=== PATIENT | male | born 1955 | race Caucasian/White ===

== ENCOUNTER 2018-07-24 06:37 | Emergency (ER) | payer OTHER, SELFPAY ==
[2018-07-24 06:48] VITALS: BP 143/95; PULSE 69; RESP 18; TEMP 37.1; O2SAT 96
--- NOTE | 2018-07-24 06:48 | DI.RAD_ITS ---
SYMPTOMS/DIAGNOSIS: LEFT MEDIAL ELBOW PAIN S/P FALL ON ICE LAST NIGHT LEFT ELBOW: Three views were obtained. There are mild degenerative changes of the joints of the elbow. There is no evidence of an elbow joint effusion or hemarthrosis. No fracture is seen.
--- NOTE | 2018-07-24 06:50 | W.ED.GENAD ---
Discharge Plan Disposition Patient Disposition: HOME Condition: Good Discharge Details Chief Complaint: Orthopedic Clinical Impression: Epicondylitis elbow, medial Primary Care Provider: Yanna Leyva ED Provider: Collin Fung Home Meds and New Rx's Prescriptions: No Action No Known Home Meds RF: 0 Discharge Instructions Instructions: Tennis Elbow (ED) Additional Instructions: Please take Tylenol, Motrin, and ice for your pain. Please use ice every 15 minutes on and off. If your chronic tingling persists or worsened please follow-up with your family doctor or orthopedic surgeon as soon as possible. If you notice any worsening of your symptoms, or any new symptoms such as vomiting, diarrhea, fever, chills, shortness of breath, chest pain, numbness, weakness, or fainting , please return immediately to the emergency department for reevaluation. Please follow up with your primary care provider as soon as possible for reassessment and reevaluation. As always, it was a pleasure participating in your medical care today. Referrals: Yanna Leyva [Primary Care Provider] - Discharge Data Discharge Date/Time-TO BE ENTERED AT DEPARTURE: 07/24/18 07:23 Medical Decision Making This is a pleasant 62-year-old male with no significant past medical history who presents today after a fall. Yesterday he fell and hit the medial aspect of his left elbow. He does have some associated numbness and tingling in his third fourth and fifth digit. He has chronic tingling in his fifth digit. He has normal strength normal movement otherwise. Tenderness is located over the medial epicondyles. I do feel that his signs and symptoms are consistent with a not mild nerve apraxia secondary to his trauma. We will get an x-ray for evaluation of any acute fracture. We will give Tylenol and Motrin here and recommend continued ice at home. X-ray results demonstrate no evidence of significant fracture. Feel the patient's symptoms are most likely secondary to medial epicondylitis secondary to the trauma. We will recommend continued Tylenol Motrin and ice. Since he has no evidence of two-point discrimination, no actual numbness, and just subjective tingling I feel he is safe for discharge home. I discussed with him the importance of close follow-up with his orthopedic surgeon or his family doctor if the tingling persists. We discussed red flags which to return. I have extensively reviewed the treatment plan and discharge instructions with the patient. I have addressed all patient concerns at this time. The patient was made aware of what symptoms to monitor for that would warrant a return to the emergency department. Discussed the plan with the patient, they demonstrate verbal understanding and agreement with our assessment and plan at this time. Impression: 1. Mild posterior soft tissue swelling without evidence for acute fracture or dislocation. 2. Degenerative changes as described. Dictated and Authenticated by: Chau Troncoso MD. HPI General Date/Time Provider Initiated Documentation: 07/24/18 06:42. HPI Narrative: This is a 62-year-old male with no significant past medical history presents today for evaluation of left elbow pain. Patient states that yesterday he slipped and landed on the medial aspect of his left elbow. Since then he has had mild pain there as well as some associated numbness and tingling in his third fourth and fifth digit. He has a history of chronic numbness and tingling in his fifth digit and had an ulnar nerve release in the past. Patient denies any pain in the proximal or distal arm, no pain in the wrist. He denies any other associated pain. That time he slipped he did not hit his head and had no loss of consciousness. He takes no blood thinners. He has no other complaints at this time. Symptoms are made worse with movement. He has been using some ice, but denies using any Tylenol or Motrin. Patient denies any other complaints at this time he denies any pertinent family history, IV or illicit drug use. Related Data Home Medications Medication Instructions Recorded Confirmed Unknown [No Known Home Meds] 07/24/18 07/24/18 Allergies Allergy/AdvReac Type Severity Reaction Status Date / Time No Known Allergies Allergy Unverified 07/24/18 06:56 Review of Systems Review of Systems All systems reviewed & are unremarkable except as noted in HPI and below [facility] Surgical History Cholecystectomy Colonoscopy - IV Sedation (01/06/17) Social History Smoking/Tobacco Use Status: Current every day Exam Narrative Exam Narrative: 1.Const: Well-nourished, Well-developed, appearing stated age 2.Eyes: PERRL, no conjunctival injection, and symmetrical lids. 3.ENT: Atraumatic external nose and ears. Moist MM. Neck: Symmetric, trachea midline, No thyromegaly. 4.CVS: +S1/S2, No murmurs or gallops. Peripheral pulses 2+ and equal in all extremities. Brisk capillary refill in all extremities. 5.RESP: Unlabored respiratory effort. Clear to auscultation bilaterally. No wheezes rales or rhonchi 6.GI: Soft, Nontender/Nondistended, No hepatosplenomegaly. No guarding or rebound. 7.MSK: Normocephalic/Atraumatic, Extremities w/o deformity or ttp No cyanosis or clubbing, Normal movement of all extremities symmetrically palpable radial and ulnar pulses. Capillary refill <2 seconds to all digits. Intact sensation to light touch of the radial, median and ulnar nerves demonstrated by testing in the dorsal web space of the thumb, the distal palmar aspect of the index finger, and the lateral surface of the fifth finger. 2 point discrimination intact to 5mm (up to 6mm can be normal in digits 3-5) of discrimination in the affected digit. Intact motor function of the radial, median and ulnar nerves demonstrated by strength of extension of the isolated distal joint of the index finger, hand survey research teacher, and spreading of the 2nd through 5th digits. Intact recurrent median nerve as demonstrated by ability to move thumb fully through opposition, abduction and flexion. No snuffbox tenderness. Patient demonstrates mild tenderness on the medial aspect of his elbow over the medial epicondyles. Normal flexion and extension of the elbow. No pain with pronation or supination. Normal hand survey research teacher strength and hand movement. No other abnormalities on exam. No signs of significant swelling. 8.Skin: Warm, Dry. No rashes or lesions. 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 Sensation grossly intact, no focal neurologic deficits. 10.Psych: (AAO) x3. Appropriate mood and affect
--- NOTE | 2018-07-24 06:55 | ED.GENADUL_ITS ---
Discharge Plan Disposition Patient Disposition: HOME Condition: Good Discharge Details Chief Complaint: Orthopedic Clinical Impression: Epicondylitis elbow, medial Primary Care Provider: Yanna Leyva ED Provider: Collin Fung Home Meds and New Rx's Prescriptions: No Action No Known Home Meds RF: 0 Discharge Instructions Instructions: Tennis Elbow (ED) Additional Instructions: Please take Tylenol, Motrin, and ice for your pain. Please use ice every 15 minutes on and off. If your chronic tingling persists or worsened please follow-up with your family doctor or orthopedic surgeon as soon as possible. If you notice any worsening of your symptoms, or any new symptoms such as vomiting, diarrhea, fever, chills, shortness of breath, chest pain, numbness, weakness, or fainting , please return immediately to the emergency department for reevaluation. Please follow up with your primary care provider as soon as possible for reassessment and reevaluation. As always, it was a pleasure participating in your medical care today. Referrals: Yanna Leyva [Primary Care Provider] - Discharge Data Discharge Date/Time-TO BE ENTERED AT DEPARTURE: 07/24/18 07:23 Medical Decision Making This is a pleasant 62-year-old male with no significant past medical history who presents today after a fall. Yesterday he fell and hit the medial aspect of his left elbow. He does have some associated numbness and tingling in his third fourth and fifth digit. He has chronic tingling in his fifth digit. He has normal strength normal movement otherwise. Tenderness is located over the medial epicondyles. I do feel that his signs and symptoms are consistent with a not mild nerve apraxia secondary to his trauma. We will get an x-ray for evaluation of any acute fracture. We will give Tylenol and Motrin here and recommend continued ice at home. X-ray results demonstrate no evidence of significant fracture. Feel the patient's symptoms are most likely secondary to medial epicondylitis secondary to the trauma. We will recommend continued Tylenol Motrin and ice. Since he has no evidence of two-point discrimination, no actual numbness, and just subjective tingling I feel he is safe for discharge home. I discussed with him the importance of close follow-up with his orthopedic surgeon or his family doctor if the tingling persists. We discussed red flags which to return. I have extensively reviewed the treatment plan and discharge instructions with the patient. I have addressed all patient concerns at this time. The patient was made aware of what symptoms to monitor for that would warrant a return to the emergency department. Discussed the plan with the patient, they demonstrate verbal understanding and agreement with our assessment and plan at this time. Impression: 1. Mild posterior soft tissue swelling without evidence for acute fracture or dislocation. 2. Degenerative changes as described. Dictated and Authenticated by: Chau Troncoso MD. HPI General Date/Time Provider Initiated Documentation: 07/24/18 06:42 . HPI Narrative: This is a 62-year-old male with no significant past medical history presents today for evaluation of left elbow pain. Patient states that yesterday he slipped and landed on the medial aspect of his left elbow. Since then he has had mild pain there as well as some associated numbness and tingling in his third fourth and fifth digit. He has a history of chronic numbness and tingling in his fifth digit and had an ulnar nerve release in the past. Patient denies any pain in the proximal or distal arm, no pain in the wrist. He denies any other associated pain. That time he slipped he did not hit his head and had no loss of consciousness. He takes no blood thinners. He has no other complaints at this time. Symptoms are made worse with movement. He has been using some ice, but denies using any Tylenol or Motrin. Patient denies any other complaints at this time he denies any pertinent family history, IV or illicit drug use. Related Data Home Medications Medication Instructions Recorded Confirmed Unknown [No Known Home Meds] 07/24/18 07/24/18 Allergies Allergy/AdvReac Type Severity Reaction Status Date / Time No Known Allergies Allergy Unverified 07/24/18 06:56 Review of Systems Review of Systems All systems reviewed & are unremarkable except as noted in HPI and below [facility] Surgical History Cholecystectomy Colonoscopy - IV Sedation (01/06/17) Social History Smoking/Tobacco Use Status: Current every day Exam Narrative Exam Narrative: 1.Const: Well-nourished, Well-developed, appearing stated age 2.Eyes: PERRL, no conjunctival injection, and symmetrical lids. 3.ENT: Atraumatic external nose and ears. Moist MM. Neck: Symmetric, trachea midline, No thyromegaly. 4.CVS: +S1/S2, No murmurs or gallops. Peripheral pulses 2+ and equal in all extremities. Brisk capillary refill in all extremities. 5.RESP: Unlabored respiratory effort. Clear to auscultation bilaterally. No wheezes rales or rhonchi 6.GI: Soft, Nontender/Nondistended, No hepatosplenomegaly. No guarding or rebound. 7.MSK: Normocephalic/Atraumatic, Extremities w/o deformity or ttp No cyanosis or clubbing, Normal movement of all extremities symmetrically palpable radial and ulnar pulses. Capillary refill <2 seconds to all digits. Intact sensation to light touch of the radial, median and ulnar nerves demonstrated by testing in the dorsal web space of the thumb, the distal palmar aspect of the index finger, and the lateral surface of the fifth finger. 2 point discrimination intact to 5mm (up to 6mm can be normal in digits 3-5) of discrimination in the affected digit. Intact motor function of the radial, median and ulnar nerves demonstrated by strength of extension of the isolated distal joint of the index finger, hand edger runner, and spreading of the 2nd through 5th digits. Intact recurrent median nerve as demonstrated by ability to move thumb fully through opposition, abduction and flexion. No snuffbox tenderness. Patient demonstrates mild tenderness on the medial aspect of his elbow over the medial epicondyles. Normal flexion and extension of the elbow. No pain with pronation or supination. Normal hand edger runner strength and hand movement. No other abnormalities on exam. No signs of significant swelling. 8.Skin: Warm, Dry. No rashes or lesions. 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 Sensation grossly intact, no focal neurologic deficits. 10.Psych: (AAO) x3. Appropriate mood and affect
[2018-07-24] MEDS: Acetaminophen 500 MG TAB 1000 MG PO (07:03)
[2018-07-24] MEDS: Ibuprofen 800 MG TAB PO (07:03)
--- NOTE | 2018-07-24 08:58 | DI.VRAD_ITS ---
EXAM: XR Left Elbow Complete, 3 or more Views EXAM DATE/TIME: 07/24/2018 6:50 AM CLINICAL HISTORY: 62 years old, male; Injury or trauma; Fall; Initial encounter; Blunt trauma (contusions or hematomas; Elbow; Left; Injury date: 07/23/2018; Injury details: Fall on ice TECHNIQUE: XR Left elbow, 3 or more views. COMPARISON: No relevant prior studies available. FINDINGS: Bones/joints: No acute fracture or dislocation is identified. There is mild osteophyte formation along the radial head, coronoid, medial epicondyle and posterior olecranon. Soft tissues: There is mild posterior soft tissue swelling. The fat pads are not significantly displaced. IMPRESSION: 1. Mild posterior soft tissue swelling without evidence for acute fracture or dislocation. 2. Degenerative changes as described. Dictated and Authenticated by: Chau Troncoso MD. Ordering:BRADY Polanco MD
== END 2018-07-24 07:23 | disposition home or self-care (01) ==
PROVIDERS: Emergency Provider Student in an Organized Health Care Education/Training Program; PCP Nurse Practitioner Family
DX: S59.902A Unspecified injury of left elbow, initial encounter (principal); M77.02 Medial epicondylitis, left elbow; W19.XXXA Unspecified fall, initial encounter
CPT/HCPCS: 99283; 73080

== ENCOUNTER 2019-03-13 11:32 | Emergency (ER) | payer OTHER, SELFPAY ==
[2019-03-13 11:36] VITALS: BP 146/77; PULSE 92; RESP 18; TEMP 36.5; O2SAT 95
--- NOTE | 2019-03-13 11:42 | ED.GENADUL_ITS ---
Discharge Plan Disposition Patient Disposition: HOME Condition: Stable Discharge Details Chief Complaint: Laceration Clinical Impression: Laceration of hand, left Primary Care Provider: Yanna Leyva ED Provider: Chau Urbano Home Meds and New Rx's Prescriptions: No Action No Known Home Meds RF: 0 Discharge Instructions Instructions: Skin Adhesive Care (ED) Medical Decision Making pt was using a knife when it slipped causing a 2cm superficial laceration to the mid palmar hand. Denies falling or other injuries. HE has very superficial laceration that is not bleeding, sensation intact with full rom so doubt tendon or nerve injury and wound seems too superficial to cause injury to these structure. Will place dermabond on it and return precautions given for infection Differential Diagnosis lac, abrasion HPI General Mode of arrival: ambulatory . Date/Time Provider Initiated Documentation: 03/13/19 11:38 . Limitations to Documentation: no limitations . Information obtained by: patient . History of Present Illness 63 year old M presents to the emergency department with the chief complaint of left hand lac, described as mild, and is localized to the left and upper extremity. No relieving factors improve symptom(s), No exacerbating factors reported . Patient did receive the following treatments prior to arrival, none Related Data Home Medications Medication Instructions Recorded Confirmed Unknown [No Known Home Meds] 07/24/18 03/13/19 Allergies Allergy/AdvReac Type Severity Reaction Status Date / Time No Known Allergies Allergy Unverified 03/13/19 11:41 General Stated Complaint: Laceration ZACARIAS: 4 Review of Systems Review of Systems All systems reviewed & are unremarkable except as noted in HPI and below Constitutional Denies chills, Denies fever(s) and Denies weakness Cardiovascular Denies chest pain and Denies dyspnea Respiratory Denies cough and Denies dyspnea Gastrointestinal Denies abdominal pain, Denies nausea and Denies vomiting Neurologic Denies weakness [facility] Surgical History (Updated 05/16/18 @ 14:36 by [employer] [place]) Cholecystectomy Colonoscopy - IV Sedation (01/06/17) Social History Smoking/Tobacco Use Status: Current every day Alcohol Intake: current Alcohol Intake frequency: holidays/special occasions only Drug use: Never Do you feel safe at home: Yes Do you feel safe in your relationship?: Yes Exam Const General: no acute distress Orientation: alert HENMT Head: normal to inspection Ears: external ears normal General nose exam: external nose normal Mouth: moist mucous membranes Eyes General: appearance normal, both eyes and all related structures Neck Neck: normal visual inspection Resp Effort & Inspection: normal respiratory effort and able to speak in complete sentences Cardio Rate: regular rate Skin General skin exam: no rashes or lesions noted Neuro General: alert and oriented x3 Extrem General: full ROM and normal capillary refill Psych Mental Status: mental status grossly normal Course Vital Signs Temperature 36.5 C 03/13/19 11:36 Pulse 92 H 03/13/19 11:36 Respiratory Rate 18 03/13/19 11:36 Blood Pressure 146/77 H 03/13/19 11:36 Pulse Oximetry 95 03/13/19 11:36 Temperature 36.5 C 03/13/19 11:36 Temperature Source Skin 03/13/19 11:36 Pulse 92 H 03/13/19 11:36 Respiratory Rate 18 03/13/19 11:36 Respiratory Effort Non-Labored 03/13/19 11:38 Blood Pressure 146/77 H 03/13/19 11:36 Blood Pressure Position Sitting 03/13/19 11:36 Pulse Oximetry 95 03/13/19 11:36 Oxygen Delivery Method Room Air 03/13/19 11:36 Oxygen Flow Rate 0 03/13/19 11:36 Procedures Laceration Laceration 1: Site: hand Side (If applicable): left Size (cm): 2 Description: linear Depth: simple, single layer Pre-repair: irrigated extensively Skin layer closed with: other (skin adhesive)
== END 2019-03-13 11:51 | disposition home or self-care (01) ==
LOC: ER 11:45
PROVIDERS: Emergency Provider Emergency Medicine; PCP Nurse Practitioner Family
DX: S61.412A Laceration without foreign body of left hand, initial encounter (principal); W26.0XXA Contact with knife, initial encounter
CPT/HCPCS: 12001

== ENCOUNTER 2020-05-13 15:42 | Outpatient (CLI) | payer OTHER, SELFPAY ==
--- NOTE | 2020-05-13 09:15 | DI.RAD_ITS ---
EXAM: XR SHOULDER LT COMPLETE 2+V CLINICAL HISTORY: left shoulder pain. TECHNIQUE: 2D digital imaging was performed. COMPARISON: No exams were available for comparison FINDINGS: BONES: No acute fracture is present. No bony destructive lesion is seen. JOINTS: Moderate degenerative changes are seen at the acromioclavicular joint. The glenohumeral join t appears well maintained. SOFT TISSUE: Normal. IMPRESSION: Degenerative changes of the left AC joint. DATA REPOSITORY: RADIATION DOSE DELIVERED:
== END 2020-05-13 16:02 ==
PROVIDERS: PCP Nurse Practitioner Family; Visit Provider Physician Assistant
DX: M19.012 Primary osteoarthritis, left shoulder (principal)
CPT/HCPCS: 73030

== ENCOUNTER 2020-10-19 02:21 | Outpatient (CLI) | payer OTHER, SELFPAY ==
--- NOTE | 2020-10-19 07:15 | DI.MRI_ITS ---
EXAM: MR CERVICAL SPINE WO CLINICAL HISTORY: persistent pain,CERVICAL PARASPINAL MUSCLE SPASM,RADICULOPATHY TECHNIQUE: Multiplanar multisequence MRI of the cervical spine was performed without intravenous con trast. COMPARISON: There are no plain films of cervical spine available at the time of this MRI interpretat ion. FINDINGS: CERVICOMEDULLARY JUNCTION: Intact with no evidence of cerebellar tonsillar ectopia. No obvious abnor mality of the odontoid process. No evidence of Chiari 1 malformation. CERVICAL SPINAL CORD: There is no abnormal signal in the cervical spinal cord and no evidence of foca l cord atrophy nor focal cord swelling. OSSEOUS:There are no cervical fractures evident. No significant osseous lesions in the cervical vert ebrae. There is an intraosseous hemangioma in right-side C6 vertebral body. INDIVIDUAL LEVELS: C2-3: Normal disc height and signal. No significant disc herniation. Central canal dimensions are w ithin normal limits. There is significant facet arthropathy of the left facet joint. No right-sided facet arthropathy. Some narrowing of the exiting left neural foramen is noted. C3-4: Normal disc height. Preserved disc signal. However, there is a central posterior subligamento us disc protrusion which extends posteriorly approximately 3 millimeters and contacts-slightly indent s the anterior aspect of the spinal cord at this level. Central canal dimensions are lower normal. There is no abnormal signal within the cord at this level. Some degenerative changes evident in the right facet joint at this level. Mild foraminal stenosis. Left facet joint unremarkable. No forami nal stenosis on the left. C4-5: Normal disc height and signal. No disc herniation at this level. Central canal dimensions are within normal limits. No significant facet arthropathy nor significant foraminal narrowing at this level. C5-6: Moderate decreased disc height. Anterior osseous lipping. Bilateral Luschka joint osteophytes , larger on the right side. No prominent disc protrusion. Central canal dimensions lower normal. F acet of is a mild facet arthropathy left side. Right facet unremarkable. There is some narrowing of the exiting right neural foramen at this level . Also some narrowing of the exiting left neural for amen. C6-7: Chronic disc space narrowing. Annular bulging. There is a lateral less disc protrusion which causes significant narrowing of the exiting left neural foramen. Minimal degenerative change in the left facet joint. Moderate degenerative change in the right facet joint but no significant foraminal stenosis on the right side. C7-T1: No disc herniation nor central canal stenosis. No facet arthropathy.No foraminal stenosis. Incidentally noted is a disc protrusion at T2-T3 level, as seen on the sagittal images. This level i s not included on the axial images field of view. IMPRESSION: 1. Multilevel degenerative disc disease. There is a moderate size disc protrusion on the left side a t C6-7 level. There is significant stenosis of the exiting left neural foramen at this level. Also central disc protrusion at C 3-4 level which slightly indents the cervical cord. There is no abnorma l signal in the cord. No cord atrophy nor focal cord swelling. 2. C5-6 level Luschka joint osteophytes, larger on the right side. 3. Asymmetric multilevel facet joint arthropathy, as detailed above. DATA REPOSITORY:
== END 2020-10-19 02:41 ==
PROVIDERS: PCP Nurse Practitioner Family; Visit Provider Student in an Organized Health Care Education/Training Program
DX: M47.812 Spondylosis without myelopathy or radiculopathy, cervical region (principal); M25.78 Osteophyte, vertebrae; M50.223 Other cervical disc displacement at C6-C7 level; M50.21 Other cervical disc displacement, high cervical region; M48.02 Spinal stenosis, cervical region
CPT/HCPCS: 72141

== ENCOUNTER 2021-06-03 02:03 | Outpatient (CLI) | payer OTHER, SELFPAY ==
--- NOTE | 2021-06-03 | DI.US_ITS ---
Exam(s) US PAIN CLINIC NEEDLE GUIDANCE EXAM: MYALGIA, M79.1 COMPARISON: No exams were available for comparison TECHNIQUE: Ultrasound performed using standard protocol. FINDINGS: Ultrasound guidance was provided during trigger point injection performed by Dr. Conti. Radiologist n ot present. IMPRESSION: DATA REPOSITORY:
[2021-06-03 12:41] VITALS: BP 156/92; PULSE 82; RESP 18; O2SAT 96
--- NOTE | 2021-06-03 13:24 | PDOC.PAIN_ITS ---
Pain Clinic Procedure Note Procedure Note Procedure Note: ULTRASOUND GUIDED LEFT RHOMBOID MUSCLE TRIGGER POINT INJECTIONS Pre-Procedural Evaluation: Vishnu Leary has been referred to the [facility] Management [facility] for an Ultrasound Guided [right/left Rhomboid muscle trigger point injection for a chief complaint of mid-back pain. Pre-procedure Pain Score: 6/10 DX: Muscle pain Patient was interviewed and the medical record reviewed. There were no medical, pharmacologic, radiographic, or other structural contraindications to preforming an ultrasound guided injection. Risks and expected side effects as well as potential benefits of the procedure were reviewed. The patient consent form was signed and witnessed. Standard time-out procedure was performed. The use of direct ultrasound visualization of the needle (rather than a non- guided injection) was required to increase patient safety by excluding inadvertent intramuscular, intratendinous, or intraneural needle placement and minimizing bleeding by avoiding osteochondral or vascular injury from the needle. Additionally, the increased accuracy of placement may increase clinical effectiveness and will allow higher diagnostic specificity when evaluating effectiveness of this injection. Procedure Description: The patient was placed in the prone position and automated blood pressure cuff and pulse oximeter applied for monitoring during the procedure and recorded in the medical record. Pre-injection ultrasound scanning of the area of interest was performed using the linear transducer, identifying relevant anatomy, landmarks, and neurovascular structures allowing for optimal needle path. The site was then prepared in the usual sterile fashion, using thorough Chlorhexadine preparation of the skin and sterile draping. The same ultrasound transducer was then passed into the sterile field using sterile probe cover and sterile ultrasound gel. The injection target was again visualized. Skin and subcutaneous tissues were anesthetized with 2 mL of 1% Lidocaine. A 21 G 3.5 Pujunk Ultrasound needle was placed under live ultrasound guidance, using an in-plane, to the target area. After visualization of the needle tip at the target area, a mixture of 3 mL 2% Lidocaine and 1 mL Dexamethasone, totaling 4 mL of injectate was delivered after negative aspiration for blood. Ultrasound images were captured and stored for documentation purposes. Post-procedure Pain Score: 0/10 Vital signs were stable throughout the procedure and were as recorded in the docflowsheet by the nursing staff. Follow up plans and appointments were discussed with the patient.Post procedure instruction was given as documented in nursing documentation and having met discharge criteria, they were discharged from the [facility] Management [facility]. COMMENTS: He tolerated the procedure well and is currently in physical therapy. Tank Conti DO, MPH Pain Management
[2021-06-03 13:34] VITALS: PULSE 78; O2SAT 96
[2021-06-03] MEDS: Dexamethasone Sod. Phos./Pres-Free 10 MG/ML VIAL IJ (13:36)
[2021-06-03] MEDS: Lidocaine 2% Pres-Free 5 ML VIAL IJ (13:37)
== END 2021-06-03 02:23 ==
PROVIDERS: PCP Nurse Practitioner Family; Visit Provider Preventive Medicine Occupational Medicine
DX: M79.18 Myalgia, other site (principal)
CPT/HCPCS: 20552; 76942

== ENCOUNTER 2021-08-31 15:45 | Outpatient (REF) | payer OTHER, SELFPAY ==
[2021-08-31 16:29] LABS: Hemoglobin A1C 5.4 % (<5.7)
[2021-08-31 16:58] LABS: Anion Gap 10.6 mmol/L (3-11); BUN 28 mg/dL (7-18); CO2 25.4 mmol/L (21.0-32.0); CREATININE 1.1 mg/dL (0.70-1.30); Calcium 9.1 mg/dL (8.5-10.1); Calculated LDL 164 mg/dL (<100); Chloride 104 mmol/L (98-107); Cholesterol 248 mg/dL (<200); Glucose 104 mg/dL (74-106); HDL Cholesterol 62 mg/dL (40-60); Sodium 140 mmol/L (136-145); TSH (W/Ref FT4) 0.74 uIU/mL (0.36-3.74); Triglyceride 112 mg/dL (<150)
[2021-09-01 11:34] LABS: Hepatitis C Ab w Rflx HCV PCR Negative (Negative)
== END 2021-08-31 15:46 | disposition home or self-care (01) ==
LOC: LBN 15:45
PROVIDERS: PCP Nurse Practitioner Family; Visit Provider Family Medicine
DX: Z00.00 Encounter for general adult medical examination without abnormal findings (principal); I10 Essential (primary) hypertension; Z11.59 Encounter for screening for other viral diseases
CPT/HCPCS: 80048; 80061; 86803; 83036; 84443

== ENCOUNTER 2021-10-04 04:04 | Outpatient (CLI) | payer OTHER, SELFPAY ==
[2021-10-04 13:41] LABS: Source Nasal/Nares
[2021-10-04 21:54] LABS: COVID-19 PCR Negative (Negative)
== END 2021-10-04 04:05 | disposition home or self-care (01) ==
LOC: LBO 04:04
PROVIDERS: PCP Nurse Practitioner Family; Visit Provider Preventive Medicine Occupational Medicine
DX: Z20.822 Contact with and (suspected) exposure to COVID-19 (principal); Z01.818 Encounter for other preprocedural examination
CPT/HCPCS: 87635

== ENCOUNTER 2021-10-07 10:23 | Outpatient (CLI) | payer OTHER, SELFPAY ==
[2021-10-07 10:34] VITALS: BP 151/87; PULSE 107; RESP 20; TEMP 36.5; O2SAT 97
[2021-10-07] MEDS: Dexamethasone Sod. Phos./Pres-Free 10 MG/ML VIAL IJ (11:13)
[2021-10-07] MEDS: Omnipaque 240 MG/ML 50 ML BTL IJ (11:13)
[2021-10-07 11:15] VITALS: BP 147/81; PULSE 97; RESP 20; O2SAT 98
--- NOTE | 2021-10-07 11:19 | DI.RAD_ITS ---
Exam(s) XR PAIN CLINIC CERVICAL SP 2V EXAM: XR PAIN CLINIC CERVICAL SP 2V CLINICAL HISTORY: Dx:Cervical Radiculopathy TECHNIQUE: 2D and realtime digital imaging was performed. COMPARISON: No exams were available for comparison FINDINGS: C-arm fluoroscopy was utilized by Dr. Conti during apparent epidural injection. Hard copy shows needl e placement at what appears to be the C7-T1 level. IMPRESSION: RADIATION DOSE DELIVERED: kit Woods=6.59 mGy Total DLP
--- NOTE | 2021-10-08 06:21 | PDOC.PAIN ---
Pain Clinic Procedure Note Procedure Note Procedure Note: Cervical Epidural Steroid Injection Vishnu Leary has been referred to the [facility] for cervical epidural steroid injection. COMMENTS: He has done well with this procedure in the past. His pre-procedure pain VAS is 6/10. Dx: Cervical radiculopathy Sapphire was interviewed and the medical record reviewed. There were no medical, pharmacologic, radiographic or other structural contraindications to attempting fluoroscopically guided epidural steroid injection. Risks and expected side effects as well as potential benefit of the procedure were reviewed with Sapphire , and Sapphire voiced concerns addressed. The printed consent form was signed and witnessed. Standard time-out procedure was performed. The patient was placed in the prone position on the fluoroscopy table and automated blood pressure cuff and pulse oximeter applied. The skin entry point for entering the epidural space by a midline C7-T1 interlaminar approach was identified under fluoroscopy and marked. Following thorough Chlorhexadine preparation of the skin and draping and 1% lidocaine infiltration of the skin entry point and subcutaneous tissues, an 18 gauge Tuohy needle was placed under fluoroscopic guidance and with loss of resistance technique into the C7-T1 epidural space. Upon needle placement and loss of resistance there were no paresthesiae or return of blood or CSF through the needle. 1 cc of Omnipaque 240 was injected with clear epidural spread in the A/P, lateral and oblique views. 15 mg of preservative free Dexomethasone was injected with no unusual discomfort expressed by Sapphire. This was flushed with 1 cc of normal saline. Sapphire 's vital signs were stable throughout the procedure and were as recorded in the docflowsheet by the nursing staff. Follow up plans and appointments were discussed with the Sapphire. Post procedure instruction was given as documented in nursing documentation and having met discharge criteria, Sapphire was discharged from the Pain Management Center. COMMENTS: If this procedure continues to be effective, he can have this procedure up to 3 times per 12 months. Post-procedure pain VAS: 1/10. Tank Conti DO, MPH [facility]-Pain Management [facility] CC: Yanna Leyva
== END 2021-10-07 10:24 | disposition home or self-care (01) ==
LOC: PC 10:23
PROVIDERS: PCP Nurse Practitioner Family; Visit Provider Preventive Medicine Occupational Medicine
DX: M54.12 Radiculopathy, cervical region (principal)
CPT/HCPCS: 62323; 72040; Q9967

== ENCOUNTER → 2022-05-06 01:01 | Outpatient (CLI) | payer OTHER, SELFPAY ==
--- OUTSIDE RECORDS SUMMARY | 2022-05-06 01:06 | XMS_ITS | Encounter Summary ---
:1955 Author Organization [facility] [place] [address] Care Team Providers Name Role Phone Yanna Leyva APRN Primary Care Provider Reason for Visit Reason Comments Establish Care Left cubital tunnel syndrome DOI: 03/09/2020 Consultation (Routine) - Closed Specialty Diagnoses / Procedures Referred By Contact Refer red To Contact Orthopaedics Diagnoses Cubital tunnel syndrome on left LEFT CUBITAL TUNNEL SYNDROME Gilberto Sullivan MD Warhold, Lance G, MD [address] [place], [place] ORTHOPAEDIC SURGERY [id number] [place] [phone] Fax: Referral ID Status Reason Start Date Expiration Date Visits V isits Requested Authorized [id number] Closed Consult, Test 10/09/2020 10/09/2021 [facility] PCP Updated and/or Approved Encounter Details Date Type Department Care Team Description 11/18/2020 [place] [facility] [place], Chronic left shoulder [facility] [place] [address] [place] [address] ORTHOPAEDIC SURGERY [place], [place] [address] Social History Tobacco Use Types Packs/Day Years Used Date Never Smoker Smokeless Tobacco: Current User Chew Comments: NOT YET Alcohol Use Standard Drinks/Week Comments Yes 0 (1 standard drink = 0.6 oz pure alcoho l) occasional Alcohol Habits Answer Date Recorded How often do you have a drink containing alcohol? Not asked How many drinks containing alcohol do you have on a typical Not asked day when you are drinking? How often do you have six or more drinks on one occasion? No t asked Comment: occasional 08/18/2014 Sex Assigned at Date Recorded Not on file documented as of this encounter Last Filed Vital Signs Vital Sign Reading Time Taken Comments Blood Pressure 169/100 11/18/2020 2:37 PM EDT Pulse 92 11/18/2020 2:37 PM EDT Temperature - - Respiratory Rate - - Oxygen Saturation - - Inhaled Oxygen Concentration - - Weight 106.6 kg (235 lb) 11/18/2020 2:37 PM EDT reporte d Height 180.3 cm (5' 11) 11/18/2020 2:37 PM EDT reporte d Body Mass Index 32.78 11/18/2020 2:37 PM EDT documented in this encounter Progress Notes Ernestina Dye MD - 11/18/2020 3:00 PM EDT I examined Vishnu Reveles Sapphire and I agree with Dr. Carr's note. ERNESTINA DYE MD Chau Carr MD - 11/18/2020 3:00 PM EDT Orthopaedic Office Note Attending: Dr. Dye Vishnu Leary is a 65 y.o. male who presents to see us in consultation today for left shoulder pain and evaluation of residual ulnar nerve symptoms Gilberto Sullivan MD [address] [place] [address] History of Present Illness: Vishnu Leary is a right hand dominant 65 y.o. male who is now approximately 6 status post a left in situ ulnar nerve decompression who presents with several months of left shoulder pain and radicular symptoms throughout his left lower extremity. The patient is been extensively worked up for his left shoulder pain including cervical spine MRI which was negative for any significant neuroforaminal stenosis and EMG studies which did not demonstrate any significant median or ulnar neuropathy. The patient has residual numbness in the distal aspect of his left small finger which has been unchanged since his surgery 6 years ago. He notes no significant increase in his pain arou nd his cubital tunnel or in his ulnar nerve distribution since surgery and he is overall pleased with his surgical result. He has been undergoing physical therapy for his left shoulder. Past Medical History: Patient Active Problem List Diagnosis Code ??? Ulnar neuropathy at elbow of left upper extremity G56.22 ??? Medial epicondylitis of elbow M77.00 ??? Pain in left shoulder M25.512 ??? Pain of left side of body R52 Past Surgical History: Past Surgical History: Procedure Laterality Date ??? PRO REVISE ULNAR NERVE AT ELBOW Left 10/10/2014 NEUROPLASTY &/OR TRANSPOSITION, ULNAR NERVE AT ELBOW performed by Ernestina Dye MD at [facility] No Known Allergies Social History: Social History Socioeconomic History ??? Marital status: Spouse name: Not on file ??? Number of children: Not on file ??? Years of education: Not on file ??? Highest education level: Not on file Occupational History ??? Not on file Tobacco Use ??? Smoking status: Never Smoker ??? Smokeless tobacco: Current User Types: Chew ??? Tobacco comment: NOT YET Substance and Sexual Activity ??? Alcohol use: Yes Comment: occasional ??? Drug use: No ??? Sexual activity: Not on file Comment: deferred Other Topics Concern ??? Not on file Social History Narrative ??? Not on file Social Determinants of Health Financial Resource Strain: ??? Difficulty of Paying Living Expenses: Food Insecurity: ??? Worried About Running Out of Food in the Last Year: ??? Ran Out of Food in the Last Year: Transportation Needs: ??? Lack of Transportation (Medical): ??? Lack of Transportation (Non-Medical): Physical Activity: ??? Days of Exercise per Week: ??? Minutes of Exercise per Session: Stress: ??? Feeling of Stress : Social Connections: ??? Frequency of Communication with Friends and Family: ??? Frequency of Social Gatherings with Friends and Family: ??? Attends Rastafari Services: ??? Active Member of Clubs or Organizations: ??? Attends Club or Organization Meetings: ??? Marital Status: Intimate Partner Violence: ??? Fear of Current or Ex-Partner: ??? Emotionally Abused: ??? Physically Abused: ??? Sexually Abused: Review of Systems: As above, otherwise negative Objective: GENERAL: Well appearing, NAD, awake, alert, appropriately answers questions HEENT- Normocephalic, atraumatic CV- RRR checked peripherally PULM- No increased work of breathing Skin- Intact Psych- Nl mood and affect Left upper extremity: Subtle left shoulder ptosis. Reproducible pain to palpation of the coracoid process, reproducible pain to palpation at the medial border the scapula at the inferior border the scapula. Subtle scapular protraction. Active forward elevation to proximal 160 degrees, active external r otation 40 degrees, active internal rotation to T12. 5/5 strength with forward flexion, external rotation, internal rotation. No pain to palpation at the AC joint, speeds and Yergason's equivocal. Negative Wartenberg's sign, negative Froment's, 5 out of 5 strength with hand intrinsics. Neurovascularlyintact distally. Imaging: No new MSK imaging at today's visit. Assessment/Plan: 65 y.o. male who presents with chronic left shoulder pain. This has been extensively worked up with a cervical MRI which did not demonstrate any significant pathology and EMG studies of the left upper extremity which demonstrated no significant median or ulnar nerve peripheral compression. 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 We discussed that the treatment for this would be scapular stabilization physical therapy. Patient also seems to complain of left lower extremity radicular symptoms in the L4 distribution. We discussed that a lumbar spine MRI would be reasonable to further evaluate this. The patient will follow up with Dr. Sullivan in [facility]. At this juncture, the patient does not need anyintervention on his left ulnar nerve. Follow up: PRN ?? This plan was discussed with the patient and they are in agreement. All of the patient's questions were answered. ?? He was seen alongside Dr. Dye who was in agreement with this plan. The above dictation was made with voice recognition software CHAU CARR MD PGY5 Orthopaedic Surgery Resident Ernestina Dye MD - 11/18/2020 3:00 PM EDT I examined Vishnu Leary and I agree with Dr. Carr's note. This consultation was requested by Gilberto DYE MD documented in this encounter Miscellaneous Notes Addendum Note - Ernestina Dye MD - 11/18/2020 3:00 PM EDT Addended by: ERNESTINA DYE on: 11/19/2020 03:25 PM Modules accepted: Level of Service documented in this encounter Plan of Treatment Not on filedocumented as of this encounter Visit Diagnoses Diagnosis Chronic left shoulder pain Pain in joint, shoulder region documented in this encounter Care Teams Restaurant Team Member Relationship Specialty Start Date End Date Yanna Leyva APRN PCP - General Family Medicine 10/15/20 [place] [address] documented as of this encounter
--- OUTSIDE RECORDS SUMMARY | 2022-05-06 01:07 | XMS_ITS | Encounter Summary ---
:1955 Author Organization [facility] Address [place] [id number] Care Team Providers Name Role Phone None Primary Care Provider Unavailable Encounter Details Date Type Department Care Team Description 10/10/2014 Hospital Encounter Outpatient Surgery Fady Dye MD [facility] [place] [address] [place] [address] [phone] Social History Tobacco Use Types Packs/Day Years Used Date Never Smoker Smokeless Tobacco: Current User Chew Alcohol Use Standard Drinks/Week Comments Yes 0 [...] Sign Reading Time Taken Comments Blood Pressure 118/78 10/10/2014 1:43 PM EDT Pulse 74 10/10/2014 1:43 PM EDT Temperature 36.8 ??C (98.2 ??F) 10/10/2014 1:29 PM EDT Respiratory Rate 18 10/10/2014 2:00 PM EDT Oxygen Saturation 96% 10/10/2014 1:36 PM EDT Inhaled Oxygen Concentration - - Weight 104.3 kg (230 lb) 10/10/2014 11:16 AM EDT Height 180.3 cm (5' 11) 10/10/2014 11:16 AM EDT Body Mass Index 32.08 10/10/2014 11:16 AM EDT documented in this encounter Discharge Instructions Discharge InstructionsJosé Manuel Rodríguez RN - 10/10/2014 11:35 AM EDT General Anesthesia Discharge Instructions Go home and rest. You may be sleepy for several hours. Take it easy as sudden position changes may cause nausea and/or dizziness. Use caution on stairs. Do not smoke if you are alone. Follow a light to regular diet as tolerated today. If nausea occurs, start with clear liquids, and progress slowly to a regular diet. Do not drive, operate machinery, drink alcoholic beverages or make any legal decisions after having general anesthesia. The medications given change your reaction time and alter your judgement. IV site -- slight redness is normal, you can use warm compresses. If tenderness and redness increases or foul drainage occurs, please contact your M.D. Patients who have had endotracheal tubes/LMA (tubes used by the anesthesia staff to ensure a safe airway during your operation) may have a sore throat. This is normal and cold liquids or soothing lozengers will help ease this discomfort. Narcotic pain medications can cause constipation, please ask the surgeons office what they recommendfor prevention of this. Some non-pharmaceutical means of constipation prevention include increasing intake of fluids, eating more fruits and vegetables as well as fruit juices. If you are uncomfortable and/or unable to urinate within 8 hours of discharge and it is before 5 pm,call your physician. If it is after 5pm go to the closest emergency room or call the hospital transmission system operator at [phone] and ask for physician director of manufacturing operations covering for your physician. Questions or problems after 5pm or on a weekend: Call the [facility] transmission system operator at and ask for the physician director of manufacturing operations covering for your doctor. You received 1000 mg of acetaminophen at 1130 am. Your next dose should not be taken before 730 pmtoday. Patient InstructionsSherry Redmond MD - 10/10/2014 12:10 PM EDT Orthopaedic Surgery Discharge Instructions Surgery: Cubital Tunnel Release Diet: You may eat a regular diet as tolerated. Driving: No, not until you are cleared to do so by your Orthopedic clinic. Ideally you should not drive while you are on narcotic pain meds as these can affect judgement and reaction time. Call your Surgeon with any questions. Medications: 1. The pain medication you are on can cause constipation so increase your intake of fluids and fiberwhile you are on them. You can also take an qukx-pke-gbbusba stool softener, colace or senna, to facilitate a bowel movement. 2. If you need a renewal on your narcotic pain medication, you need to give the Orthopedic clinic enough time to process your request. This can take up to three days, so plan accordingly. Wound: Keep operative hand clean and dry. Keep the dressing on until your follow-up appointment. Activity: Light activity only in the operative arm, avoid extreme range of motion as the wound will be healing. Be careful on stairs, as you may be unsteady on your feet. Use the sling as needed until follow-up. You should also keep the hand elevated after surgery. This will help to decrease swelling and improve comfort. Ice may be applied but make sure it is double- bagged as to not get the incision or dressings wet. Call your doctor (#[phone]) if: You have a fever > 101.5 or experience chills Increased discharge from the incision Any redness or swelling around the incision Increased pain or change in the pain that is not controlled by your pain medications WHERE TO CALL WITH QUESTIONS [facility] Ask for the resident director of manufacturing operations for your provider [facility] (7:00am - 5:00pm) Future Appointments Date Time Provider Department Center 10/20/2014 10:55 AM Jt Dye MD [facility] [address] [place] [address] CLIN documented in this encounter Medications at Time of Discharge Medication Sig Dispensed Refills Start Date End Date acetaminophen (TYLENOL) Take 1,000 mg by 0 500 mg Tablet mouth every 6 hours as needed for Pain. ibuprofen (ADVIL;MOTRIN) Take 1 tablet by 30 tablet 12 10/1305/25/2015 600 mg TabletIndications: mouth every 6 hours pain as needed for Pain. Indications: Pain oxyCODONE (ROXICODONE) 5 Take 1 tablet by 20 tablet 0 10/1010/20/2014 mg Tablet mouth every 6 hours as needed for Pain. documented as of this encounter H&P Notes Jt Dye MD - 10/10/2014 11:23 AM EDT Patient Name: Vishnu Leary Patient Age: 58 y.o. Birthdate: 1955 Admit date: 10/10/2014 Attending Physician: Jt Dye MD I interviewed and examined Vishnu Leary. There have been no apparent interval changes in his healthstatus since the most recent history and physical was done. Jt Dye MD Jt Dye MD - 10/09/2014 11:58 AM EDT Patient Name: Vishnu Leary Patient Age: 58 y.o. Birthdate: 1955 Admit date: (Not on file) Attending Physician: Jt Dye MD Please see H&P note for visit documentation. documented in this encounter Miscellaneous Notes Op Note - Jt Dye MD - 10/10/2014 11:28 AM EDT [facility] [place] Patient Name: Vishnu Leary : [id number] MR#: [id number] Case Date: 10/10/2014 Surgeon: Surgeon(s) and Role: * Jt Dye MD - Primary * Sherry Redmond MD - Resident left cubital tunnel syndrome. Postoperative Diagnoses: left cubital tunnel syndrome. Procedure Performed: In situ decompression, left cubital tunnel. Anesthesia: General Operative Indication: The patient is a 58 y.o.-year-old male with EMG-proven left cubital tunnel syndrome refractory to conservative treatment. He was brought to the operating room today for left cubital tunnel decompression. Summary of Procedure: After 2 g of intravenous cefazolin was administered, his left upper extremity was prepped up to the axilla from the fingertips to the axilla with a Hibiclens scrub and a ChloraPrep. his arm was draped in a sterile fashion. A preoperative timeout was performed as per [facility] [place]. her left arm was exsanguinated with an Esmarch bandage. A sterile brachial tourniquet was inflated to 250 mmHg. An incision was made over the medial aspect of his left elbow. Subcutaneous spreading was performed in a blunt fashion. Multiple cutaneous crossing nerves were identified and protected. Hemostasis was achieved with electrocautery. With blunt dissection, I was able to expose Cardenas's fascia over the ulnar groove. This was incised. The ulnar nerve was tracked distally and decompressed distally betweenthe two heads of the flexor carpi ulnaris with all sites of compression being relieved in this manner. The nerve was tracked proximally, and the Melber of [place] was released. The medial intermuscular septum was excised. Care was taken to avoid injury to the ulnar nerve and its branches throughout.The elbow was brought through range of motion. The ulnar nerve was found to be stable within the ulnar groove. It was completely decompressed from the mid brachium well into the muscle belly of the flexor carpi ulnaris. The articular branch to the elbow as well as the motor branches to the FCU were identified and protected. The incision site was irrigated. The tourniquet was released with a tourniquet time of 23 minutes. All digits rapidly became pink andwarm with brisk capillary refill. No significant bleeding was encountered in the elbow incision site. This was closed in layers using 4-0 undyed Vicryl and 4-0 nylon. It was injected with 10 mL of 0.25% Marcaine with epinephrine. Sterile soft dressings were applied. A sling was applied to His left arm. He was then extubated and transferred to the recovery room in stable condition. Estimated blood loss was minimal. IV fluid replacement was 500 mL of crystalloid. He tolerated the procedure well without apparent complications. Attestation: Case Date: 10/10/2014 I was present and I participated during the entire procedure (does not need to include opening and closing). Jt Dye MD 10/10/2014 Brief Op Note - Jt Dye MD - 10/10/2014 11:25 AM EDT Brief Operative Note Patient Name: Vishnu Leary : [id number] MR#: [id number] Case Date: 10/10/2014 Surgeon: Surgeon(s) and Role: * Jt Dye MD - Primary * Sherry Redmond MD - Resident Preoperative diagnosis: Left cubital tunnel syndrome Postoperative diagnosis: Left cubital tunnel syndrome Procedure(s): NEUROPLASTY &/OR TRANSPOSITION, ULNAR NERVE AT ELBOW Anesthesia: General Complications: none Fluids: 500 cc crystalloid Estimated Blood Loss: None Drains: none Disposition: awakened from anesthesia, extubated and taken to the recovery room in a stable condition, having suffered no apparent untoward event. Condition: doing well without problems Attestation: Case Date: 10/10/2014 I was present and I participated during the entire procedure (does not need to include opening and closing). (Please see the Surgical Encounter Summary for any Implant and Specimen details pertinent to this patient.) documented in this encounter Plan of Treatment Not on filedocumented as of this encounter Procedures Procedure Name Priority Date/Time Associated Diagnosis Comme nts NEUROPLASTY &/OR 10/10/2014 12:10 PM Left cubital tunn el TRANSPOSITION, ULNAR EDT syndrome NERVE AT ELBOW (WRVU 7.26) documented in this encounter Visit Diagnoses Not on filedocumented in this encounter Administered Medications Inactive Administered Medications - up to 3 most recent administrations Medication Order MAR Action Action Date Dose Rate Site acetaminophen (TYLENOL) tablet Given 10/10/2014 11:45 AM EDT 1,0 00 mg 1,000 mg 1,000 mg, Oral, ONCE, 1 dose, On Mon10/10/14 at 1145, Maximum dose of acetaminophen is 4000 mg from all sources in 24 hours., Day of Surgery (Day of Procedure), Routine gabapentin (NEURONTIN) capsule 600 mg Given 10/10/2014 11:45 AM EDT 600 mg 600 mg, Oral, ONCE, 1 dose, On Mon10/10/14 at 1145, Day of Surgery (Day of Procedure), Routine lactated ringers infusion 1,000 New Bag 10/10/2014 11:45 AM ED T 1,000 mLs 100 mL/hr mL 1,000 mL, at 100 mL/hr, Intravenous, CONTINUOUS, Starting on Mon10/10/14 at 1145, Until Mon10/10/14 at 1816 documented in this encounter Active and Recently Administered Medications Times are shown in EDT. Scheduled Medication Order 10/08/2014 10/09/2014 10/10/2014 acetaminophen (TYLENOL) tablet 1,000 mg (COMPLETED) 1145 (Given - Provider: José Manuel Rodríguez RN) 1,000 mg, Oral, ONCE, 1 dose, Mon 5 at 1145, Maximum dose of acetaminophen is 4000 mg from all sources in 24 hours., Day of Surgery (Day of Procedure), Routine ceFAZolin (ANCEF) 2,000 mg in dextrose 5% 106.06 mL (COMPLETED) 1209 (Given - Provider: Sabina Contreras) 2,000 mg (2 g), Intravenous, EVERY 3 RAY RS, 1 dose, First dose on Mon10/10/14 at 1145, Redose after 3 hours., Intra-Operative (Intra-Procedure), Indication for (Active or Suspected): Prophylaxis gabapentin (NEURONTIN) capsule 600 mg (COMPLETED) 1145 (Given - Provider: José Manuel Rodríguez RN) 600 mg, Oral, ONCE, 1 dose, Mon10/10/14 at 1145, Day of Surgery (Day of Procedure), Routine Continuous Medication Order 10/08/2014 10/09/2014 10/10/2014 lactated ringers infusion 1,000 mL (CANCELED) 1145 (New Bag - Provider: José Manuel Rodríguez RN)1315 (Anesthesia Volume Adjustment - Provider: Ishmael Kenney CRNA) 1,000 mL, at 100 mL/hr, Intravenous, CON TINUOUS, Starting Mon10/10/14 at 1145, Until Mon10/10/14 at 1816 PRN Medication Order 10/08/2014 10/09/2014 10/10/2014 BUpivacaine-EPINEPHrine 0.25 %-1:200,000 injection (CANCELED) 1313 (Given - Provider: Sherry Redmond MD) ONCE PRN, Starting Mon10/10/14 at 1313, Until Mon10/10/14 at 1418, Intra- Operative (Intra-Procedure), Routine documented in this encounter Care Teams Rrts Relationship Specialty Start Date End Date None PCP - General 10/07/14 10/14/20 None documented as of this encounter
--- OUTSIDE RECORDS SUMMARY | 2022-05-06 01:07 | XMS_ITS | Encounter Summary ---
:1955 Author Organization [facility] [address] Care Team Providers Name Role Phone None Primary Care Provider Unavailable Reason for Referral Physical Therapy (Routine) - Closed Specialty Diagnoses / Procedures Referred By Contact Refer red To Contact Physical Therapy Diagnoses Pain in left shoulder Scapular dyskinesis Jasmin Coburn PA [facility] [place] [address] Referral ID Status Reason Start Date Expiration Date Visits V isits Requested Authorized [id number] Closed Evaluate and 01/20/2015 07/19/2015 12 12 Treat Reason for Visit Reason Comments Left Shoulder Pain DOI 03/31/14 Encounter Details Date Type Department Care Team Description 01/20/2015 Office Visit Orthopaedics at [facility] Manjinder Mccollum, Pain in left shoulder; [facility] [place] [address] CENTER [phone] ORTHOPAEDIC SURGERY [place], [place] [address] Social History Tobacco Use Types Packs/Day Years Used Date Never Smoker Smokeless Tobacco: Current User Chew Tobacco Cessation: Ready to Quit: No Comments: NOT YET Alcohol Use Standard Drinks/Week [...] Sign Reading Time Taken Comments Blood Pressure 147/89 01/20/2015 12:55 PM EDT Pulse 66 01/20/2015 12:55 PM EDT Temperature - - Respiratory Rate - - Oxygen Saturation - - Inhaled Oxygen Concentration - - Weight 106.6 kg (235 lb) 01/20/2015 12:55 PM EDT verbal Height 180.3 cm (5' 11) 01/20/2015 12:55 PM EDT verbal Body Mass Index 32.78 01/20/2015 12:55 PM EDT documented in this encounter Progress Notes Jasmin Coburn PA - 01/20/2015 1:21 PM EDT PATIENT NAME: Vishnu Leary AGE: 59 y.o. MR#: [id number] DATE OF VISIT: 01/20/2015 DATE OF INJURY/ONSET: 03/31/2014 STAFF: Dr. Mccollum CHIEF COMPLAINT: Left shoulder muscle spasms HISTORY OF PRESENT ILLNESS: Mr. Leary is a 59 y.o. year old male who comes into clinic today for follow up regarding the left shoulder. He is approximately 3 months out from his left cubital tunnel decompression performed by Dr. Dye. During the course of his therapy it was noted that he was havingsome muscle spasms over the shoulder and he has since been referred to shoulder clinic for formal evaluation. He denies having any specific injuries to the shoulder. He finds that his left upper approximately symptoms in general are exacerbated by repetitive motion at work. He has since been cleared to return to light duty work following his elbow surgery. He has had some manipulations and therapy and finds that his shoulder symptoms are improving. He continues to have diminished sensation in the ulnar nerve distribution. PHYSICAL EXAM: Mr. Leary is alert and oriented. He appears in no acute discomfort and is resting comfortably in the exam room. Inspection: No erythema, ecchymosis, or swelling involving the patient's left shoulder. Palpation: Nontender over the acromioclavicular joint. No significant subacromial pain. Nontender over the glenohumeral joint line. He has some tender spots along the upper trapezius and medial scapular border. ROM: Forward Flexion: 170?? active Abduction: 170?? active External Rotation: 80?? active Internal Rotation: Reaches to T10 Strength: 5/5 rotator cuff strength in all planes Orthopedic testing: Negative impingement testing. Negative horizontal adduction. Negative Bethel's.Negative speed's and Yergason's. Negative Spurling's. No significant scapular dyskinesis with forward flexion and abduction. Neurovascular: He continues to have diminished sensation into the ulnar nerve distribution. Sensation over the shoulder is otherwise fully intact with good distal perfusion. RADIOLOGICAL STUDIES: X-rays of the shoulder show no acute injuries. No significant glenohumeral arthritis is present. He has some acromioclavicular joint arthritis which is asymptomatic on exam. ASSESSMENT: Left scapular muscle spasms with persistent ulnar nerve symptoms after cubital tunnel decompression PLAN: Dr. Mccollum also evaluated and spoke with the patient at today's visit. He has excellent shoulderrange of motion and rotator cuff strength. We discussed that he would benefit from continued therapyfor his scapular symptoms in addition to anti-inflammatories as needed. He will continue with follow-up is planned for his ulnar nerve with Dr. Dye. His worker's comp paperwork was filled out today. He will continue to work in a modified capacity. He will return for follow up as needed in shoulderclinic. The patient understands to contact us if they have any other questions or concerns. The above documentation was completed using [employer] voice recognition software. documented in this encounter Plan of Treatment Scheduled Referrals Name Type Priority Associated Diagnoses Order S chedule Referral to Outpatient Referral Routine Pain in left Ordered: Physical Therapy shoulder 01/20/2015 Scapular dyskinesis documented as of this encounter Visit Diagnoses Diagnosis Pain in left shoulder Pain in joint, shoulder region Scapular dyskinesis Lack of coordination documented in this encounter Care Teams Paper Sealer Relationship Specialty Start Date End Date None PCP - General 10/07/14 10/14/20 None documented as of this encounter
--- OUTSIDE RECORDS SUMMARY | 2022-05-06 01:07 | XMS_ITS | Encounter Summary ---
:1955 Author Organization [facility] [place] [address] Care Team Providers Name Role Phone Unknown Primary Care Provider Unavailable Reason for Visit Reason Comments Pre-op Exam elbow surgery 10/12, no concc erns; no refills Encounter Details Date Type Department Care Team Description 10/01/2014 Office Visit Internal Medicine at Yenni Parra Pre[place]o [place] [facility] [place] Ulnar neuropathy at elbow of left upper extremity [facility] [address] [place], [place] GENERAL INTERNAL [address] MEDICINE [phone] [place], [place] [address] (Wo rk) Social History Tobacco Use Types Packs/Day Years Used Date Never Smoker Smokeless Tobacco: Current User Chew Tobacco Cessation: Ready to Quit: No Alcohol Use Standard Drinks/Week Comments Yes 0 [...] Sign Reading Time Taken Comments Blood Pressure 150/79 10/01/2014 11:13 AM right arm EST Pulse 72 10/01/2014 11:13 AM EST Temperature 36.8 ??C (98.2 ??F) 10/01/2014 11:13 AM EST Respiratory Rate 12 10/01/2014 11:13 AM EST Oxygen Saturation 98% 10/01/2014 11:13 AM EST Inhaled Oxygen Concentration - - Weight 104.1 kg (229 lb 6.4 oz) 10/01/2014 11:13 AM EST Height 178 cm (5' 10.08) 10/01/2014 11:13 AM EST Body Mass Index 32.84 10/01/2014 11:13 AM EST documented in this encounter Progress Notes eYnni Parra PA - 10/01/2014 11:20 AM EST Subjective: Patient ID: Vishnu Leary is a 58 y.o. male. HPI Reason for surgery - Left ulnar neuropathy/ Left cubital tunnel syndrome HPI - Vishnu Leary is a 58 yo male presenting for pre-operative exam. He endorses numbness and tingling in the ulnar side of the ring finger of his left arm and decreased frame catcher strength x 5 months. 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 He has found no relief with ice, anti-inflammatories, a prednisone taper, PT or the Heelbo. Regarding his prior medical history he has not had a PCP in several years. PMH is significant for: HTN- diagnosed in his 20s. Was placed on HCTZ. He states the issues then resolved and his blood pressure medication was discontinued. He has not taken BP medications since. No SOB with exertion. No chest pain/tightness, palpitations, orthopnea, lower extremity edema, vision changes, or headaches. Tobacco Use- chewing tobacco x 35 years. Uses 1 tin in 2-3 days Concerns about surgery - none Difficulties with anesthesia in the past - none Date of surgery - 10/10/14 Surgical procedure - Left Cubital tunnel release Surgeon - Dr. 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 HENT: Negative. Respiratory: Negative for cough, shortness of breath and wheezing. Cardiovascular: Negative for chest pain and palpitations. Gastrointestinal: Negative for nausea, vomiting, diarrhea and constipation. Musculoskeletal: Negative for myalgias, joint swelling and arthralgias. Neurological: Per HPI Hematological: Negative. Psychiatric/Behavioral: Negative. Objective: Physical Exam Vitals: BP 150/79 Pulse 72 Temp(Src) 36.8 ??C (98.2 ??F) (Oral) Resp 12 Ht 178 cm (5' 10.08) Wt 104.055 kg (229 lb 6.4 oz) BMI 32.84 kg/m2 SpO2 98% Gen: Well appearing, well developed and in no acute distress Eyes: EOMI, normal conjunctiva and sclera ENT: Poor dentition. OP clear without lesions. TMs clear Neck: Supple, no lymphadenopathy or masses CV: RRR, no m/r/g Lungs: CTAB, no wheezes, rales, or rhonchi Abd: + bowel sounds, soft, nontender, nondistended. No appreciable HSM or masses Ext: no edema Skin: warm and dry, no lesions or rashes Neuro: alert and oriented x 3 Psych: appropriate mood and affect Assessment and Plan: ACTIVE CARDIAC CONDITIONS - MAJOR CLINICAL RISK FACTORS Condition Examples x None Unstable coronary syndromes Unstable or severe angina Recent IL Decompensated HF Significant arrhythmias High-grade AV block Mobitz II AV block Third-degree AV heart block Symptomatic ventricular arrhythmias SVT (including A-fib) with uncontrolled ventricular rate Symptomatic bradycardia Newly recognized ventricular tachycardia Severe valvular disease Severe aortic stenosis Symptomatic mitral stenosis CLINICAL RISK FACTORS x none History of heart disease History of compensated or prior heart failure History of cerebrovascular disease Diabetes Renal Insufficiency FUNCTIONAL CAPACITY Mets Examples <4 Perform ADL's Walk indoors Walk a block at 2-3 mph x 4 Do light housework Climb a flight of stairs Walk on level ground at 4 mph >4 Run a short distance Scrub floors / move heavy furniture Moderate recreational activities 10 Strenuous sports SURGICAL RISK Surgical risk Procedure Examples High / Vascular Major emergency surgery Aortic and other major vascular surgery Peripheral vascular surgery Intermediate Intraperitoneal and intrathoracic Carotid endarterectomy Head and neck surgery Orthopedic surgery Prostate surgery x Low Endoscopic procedures Superficial procedures Cataract surgery Breast surgery Ambulatory surgery CARDIAC EVALUATION & CARE PLAN Previous PCI Action x None Proceed Balloon angioplasty Delay if < 2 weeks Proceed with aspirin Bare metal stent Delay if < 30-45 days Proceed with aspirin Drug eluding stent Delay if < 1 year Proceed with aspirin Description Recommendations Disposition Need for emergency non cardiac surgery Perioperative surveillance and postoperative risk stratification and risk factor management Operating room Active cardiac conditions Evaluate and treat per ACC/AHA guidelines Consider operating room x Low risk surgery Proceed with planned surgery x METS > or = 4 without symptoms Proceed with planned surgery METS < 4 Assess risk factors RISK FACTORS Clinical Risk Factors Surgical Risk Further Testing 3 or more High / Vascular YES 3 or more Intermediate HR Control, consider non-invasive testing 1 or 2 ANY HR Control, consider non-invasive testing x None ANY NO PERIOPERATIVE MANAGEMENT History Action Dyspnea of unknown origin, or CHF with worsening dyspnea or clinical status () Preoperative Echo High risk / Vascular procedure, or Intermediate procedure with 1+ clinical risk factors () Preoperative EKG High / Intermediate risk procedure with 1+ clinical risk factor () Add perioperative beta blockers () Continue current beta nancy regimen () Beta blockers contraindicated () Add perioperative Alpha-2 Agonist therapy High / Intermediate risk procedure with 1+ clinical risk factor () Add statin therapy () Continue current statin therapy () Statin therapy not recommended Diabetes () Target glucose <180 (General surgery) () Target glucose <150 (Cardiac) () Target glucose <110 (ICU, Neuro) () Insulin drip recommended x None of the above PRE-OPERATIVE ASSESSMENT & PLAN Medication changes Medication list reviewed, no changes needed Pre-operative labs none Pre-operative EKG 10/01/14: NSR, 70bpm, no arrhythmias or signs of ischemia Pre-operative CXR none Anesthesia / perioperative concerns none Assessment Vishnu Leary is a 58 yo male presenting for pre-operative exam for left cubital tunnel release. He does have history of HTN and currently has an elevated blood pressure reading. He does notplan on establishing his [place] [facility] [place]. I discussed with him the importance that he does establish with a PCP somewhere to discuss his BP management further, he would benefit from restarting HCTZ. Otherwise no significant cardiac or respiratory history. Low risk for procedure. Perioperative care Stop Ibuprofen 7 days prior to procedure. May use Tylenol for pain control. documented in this encounter Plan of Treatment Pending Results Name Type Priority Associated Diagnoses Date/Ti me EKG 12 Lead ECG Routine 10/01/2014 11:4 6 AM EST EKG 12 Lead ECG Routine 10/01/2014 11:4 6 AM EST EKG 12 Lead ECG Routine 10/01/2014 11:4 6 AM EST documented as of this encounter Procedures Procedure Name Priority Date/Time Associated Diagnosis Comme nts EKG 12-LEAD Routine 10/01/2014 11:46 AM EST EKG 12-LEAD Routine 10/01/2014 11:46 AM EST EKG 12-LEAD Routine 10/01/2014 11:46 AM EST EKG 12-LEAD Routine 10/01/2014 11:46 AM Results for this EST procedure are i n the results section . EKG 12-LEAD Routine 10/01/2014 11:46 AM Pre-op exam Results for this EST procedure are i n the results section . documented in this encounter Results EKG 12 Lead (10/01/2014 11:46 AM EST) Component Value Ref Range Test Analysis Performed Pathologis t Method Time At Signature Ventricular rate 70 BPM MUSE SYSTEM Atrial Rate 70 BPM MUSE SYSTEM P-R Interval 162 ms MUSE SYSTEM QRS Duration 96 ms MUSE SYSTEM Q-T Interval 386 ms MUSE SYSTEM QTC Calculated 416 ms MUSE SYSTEM (Bezet) Calculated P [place] 40 degrees MUSE SYSTEM Calculated R [place] 9 degrees MUSE SYSTEM Calculated T [place] 23 degrees MUSE SYSTEM INTERPRETATION Normal sinus rhythm MUSE SYSTEM Nonspecific T wave abnormality Abnormal ECG No previous ECGs available ERROR DO NOT USE DUPLICATE EKG Confirmed by MD LARA JOHN ([id number]), editor farm journal FREDDY VU ([id number]) on 10/01/2014 12:20:32 PM Specimen Anatomical Collection Method Collection Time Receive d Time (Source) Location / / Volume Laterality 10/01/2014 11:46 10/01/2014 AM EST 12:20 PM EST Unknown ECG ORDERABLES Performing Organization Address City/State/ZIP Code Phon e Number MUSE SYSTEM EKG 12 Lead (10/01/2014 11:46 AM EST) Component Value Ref Range Test Analysis Performed Pathologis t Method Time At Signature Ventricular rate 70 BPM MUSE SYSTEM Atrial Rate 70 BPM MUSE SYSTEM P-R Interval 162 ms MUSE SYSTEM QRS Duration 96 ms MUSE SYSTEM Q-T Interval 386 ms MUSE SYSTEM QTC Calculated 416 ms MUSE SYSTEM (Bezet) Calculated P [place] 40 degrees MUSE SYSTEM Calculated R [place] 9 degrees MUSE SYSTEM Calculated T [place] 23 degrees MUSE SYSTEM INTERPRETATION Normal sinus rhythm MUSE SYSTEM Nonspecific T wave abnormality Abnormal ECG No previous ECGs available Confirmed by MD LARA JOHN ([id number]) on 10/01/2014 5:49:20 PM Specimen Anatomical Collection Method Collection Time Receive d Time (Source) Location / / Volume Laterality 10/01/2014 11:46 10/01/2014 5:49 AM EST PM EST Vadim Darden MD ECG ORDERABLES Performing Organization Address City/State/ZIP Code Phon e Number MUSE SYSTEM documented in this encounter Visit Diagnoses Diagnosis Pre-op exam Preoperative examination, unspecified Ulnar neuropathy at elbow of left upper extremity documented in this encounter Care Teams Cylinder Block Hole Reliner Relationship Specialty Start Date End Date Unknown PCP - General 07/29/14 10/06/14 None documented as of this encounter
--- OUTSIDE RECORDS SUMMARY | 2022-05-06 01:07 | XMS_ITS | Encounter Summary ---
:1955 Author Organization [facility] [place] [address] Care Team Providers Name Role Phone Barrie Addison MD Primary Care Provider [phone] Reason for Referral Consultation (Routine) - Closed Specialty Diagnoses / Procedures Referred By Contact Refer red To Contact Neurology Diagnoses Ulnar neuropathy at elbow of left upper extremity Medial epicondylitis of elbow, left Karly Farley PA [facility] [address] [place] [address] [place] [address] Fax: Referral ID Status Reason Start Date Expiration Date Visits V isits Requested Authorized [id number] Closed Consult, 07/23/2014 07/23/2015 1 1 Test & Treat Reason for Visit Reason Comments Left Elbow Pain WC DOI 03/31/14 Encounter Details Date Type Department Care Team Description 07/23/2014 [place] [facility]arly Farley Ulnar neuropathy at elbow of left upper extremity; [facility] [place] Medial epicondylitis of elbow, left [address] [place] [address] [place] [address] [phone] Social History Tobacco Use Types Packs/Day Years Used Date Never Smoker Smokeless Tobacco: Current User Chew Alcohol Use Standard Drinks/Week Comments Yes 0 (1 standard drink = 0.6 oz pure alcoho l) OCC Alcohol Habits Answer Date Recorded How often do you have a drink containing alcohol? Not asked How many drinks containing alcohol do you have on a typical Not asked day when you are drinking? How often do you have six or more drinks on one occasion? No t asked Comment: OCC 07/23/2014 Sex Assigned at Date Recorded Not on file documented as of this encounter Last Filed Vital Signs Vital Sign Reading Time Taken Comments Blood Pressure 147/79 07/23/2014 9:33 AM EST Pulse 89 07/23/2014 9:33 AM EST Temperature - - Respiratory Rate - - Oxygen Saturation - - Inhaled Oxygen Concentration - - Weight 106.6 kg (235 lb) 07/23/2014 9:33 AM EST STATED Height 182.9 cm (6') 07/23/2014 9:33 AM EST STATED Body Mass Index 31.87 07/23/2014 9:33 AM EST documented in this encounter Progress Notes Karly Farley PA - 07/23/2014 10:04 AM EST This 58-year-old gentleman comes in today accompanied by his for evaluation of pain and numbness and tingling, left elbow and hand. This has been bothering him for almost 4 months now. It started in March. 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 There was not any one specific injury. He noted pain along the medial aspect of the left elbow that would radiate with numbness and tingling down into his small and ring fingers on the left hand. He has been through a course of PT without much relief though it has helped some of the tendonitis type symptoms. He also had some tennis elbow type symptoms initially. He continues to have numbness and tingling in his small and ring fingers. He has been working light duty. He did have an MRI done, which showed inflammation of the ulnar nerve and findings consistent with medial epicondylitis. The patient comes in today for further evaluation. Examination today shows him to be in no acute distress. He admits to decreased sensation in the ulnar nerve distribution of the left hand. Normal sensation in the median nerve distribution. He maintains full range of motion of the left elbow, positive Tinel of the left elbow. Mild tenderness over the medial epicondyle. Positive elbow flexion test at 15 seconds. X-rays taken today of the left elbow within normal limits. MRI findings were reviewed. IMPRESSION: Left ulnar neuropathy with medial epicondylitis, workman's comp, date of injury is 03/31/2014. TREATMENT: I have gone over the ulnar neuropathy with him and treatment options. I have recommended EMG's to further evaluate the severity of the ulnar neuropathy. The patient is in agreement. He was fitted with an elbow pad today to wear during the day as needed. He is not really having any nighttime symptoms, so I do not feel that he needs to do that. He will continue his light duty work. We will see him back after the EMG to go over results and go over further treatment options. We did discuss today that treatment option is surgical decompression of the ulnar nerve at the elbow. The patient voiced understanding and is comfortable with this. documented in this encounter Plan of Treatment Scheduled Referrals Name Type Priority Associated Diagnoses Order S chedule Referral to Outpatient Referral Routine Ulnar neuropathy at O rdered: Neurology elbow of left upper 07/23/20 14 extremity Medial epicondylitis of elbow, left documented as of this encounter Visit Diagnoses Diagnosis Ulnar neuropathy at elbow of left upper extremity Medial epicondylitis of elbow, left documented in this encounter Care Teams Manager Nicu Relationship Specialty Start Date End Date Barrie Addison MD PCP - General 06/22/10 07/28/14 [address] [facility] [place] [address] documented as of this encounter
--- OUTSIDE RECORDS SUMMARY | 2022-05-06 01:07 | XMS_ITS | Encounter Summary ---
:1955 Author Organization [facility] [address] Care Team Providers Name Role Phone Barrie Addison MD Primary Care Provider [phone] Encounter Details Date Type Department Care Team Description 05/30/2014 Orders Only Orthopaedics at [facility] Karly Farley PA [facility] [address] [place] [address] [place] [address] [phone] (Wo rk) Social History Tobacco Use Types Packs/Day Years Used Date Never Assessed Sex Assigned at Date Recorded Not on file documented as of this encounter Plan of Treatment Not on filedocumented as of this encounter Procedures Procedure Name Priority Date/Time Associated Diagnosis Comme nts FILM LIBRARY Routine 05/30/2014 8:33 AM Results f or this STORAGE ONLY MR EDT procedure ar e in ELBOW the results section. documented in this encounter Results Film Library- Storage only MR Elbow (05/30/2014 8:33 AM EDT) Anatomical Region Laterality Modality Other Specimen (Source) Anatomical Collection Method Collection Time Re ceived Time Location / / Volume Laterality 05/30/2014 8:33 AM EDT Narrative 07/09/2014 8:33 AM EST This is a Non-reportable exam Procedure Note JET, UNSIGNED REPORT - 07/09/2014Formatt ing of this note might be different from the original. This is a Non-reportable exam Karly GALLO IMG FILM LIBRARY ORDERABLES documented in this encounter Visit Diagnoses Not on filedocumented in this encounter Care Teams Assistant Department Manager Relationship Specialty Start Date End Date Barrie Addison MD PCP - General 06/22/10 07/28/[address] [place] [address] documented as of this encounter
--- OUTSIDE RECORDS SUMMARY | 2022-05-06 01:07 | XMS_ITS | Encounter Summary ---
:1955 Author Organization [facility] [place] [address] Care Team Providers Name Role Phone Unknown Primary Care Provider Unavailable Encounter Details Date Type Department Care Team Description 08/18/2014 Office Visit Neurology at [facility] Mu Sanchez W, Ulnar neuritis, [place] [address] NEUROLOGY [address]PT. [place], [place] [address] Social History Tobacco Use Types [...] Sign Reading Time Taken Comments Blood Pressure 151/88 08/18/2014 8:55 AM EST Pulse 89 08/18/2014 8:55 AM EST Temperature - - Respiratory Rate - - Oxygen Saturation - - Inhaled Oxygen Concentration - - Weight 106.6 kg (235 lb) 08/18/2014 8:55 AM EST Height 182.9 cm (6') 08/18/2014 8:55 AM EST Body Mass Index 31.87 08/18/2014 8:55 AM EST documented in this encounter Progress Notes Stommel, Mu W, MD - 08/18/2014 9:19 AM EST Vishnu Leary referred for EDX studies by Jt Dye MD [facility] [place] [address] to look for evidence of ulnar neuropathy on the left.. Report scanned into EDH. documented in this encounter Plan of Treatment Not on filedocumented as of this encounter Visit Diagnoses Diagnosis Ulnar neuritis, left documented in this encounter Care Teams Assistant Professor Nurse Education Relationship Specialty Start Date End Date Unknown PCP - General 07/29/14 10/06/14 None documented as of this encounter
--- OUTSIDE RECORDS SUMMARY | 2022-05-06 01:07 | XMS_ITS | Encounter Summary ---
:1955 Author Organization [facility] Address [address] [place] [address] Care Team Providers Name Role Phone None Primary Care Provider Unavailable Reason for Visit Reason Comments Follow Up Surgery sp left cubital tunnel decom pression dos 10/10/14 Encounter Details Date Type Department Care Team Description 08/26/2015 Office Visit Orthopaedics at [facility] Jt Dye, Ulnar neuropathy at [facility] elbow of left upper [address] [place] [address] [place] [address] ORTHOPAEDIC SURGERY [place] [address] Social History Tobacco Use Types Packs/Day Years Used Date Never Smoker Smokeless Tobacco: Current User Chew Tobacco Cessation: Ready to Quit: No; Co unseling Given: No Comments: NOT YET Alcohol Use Standard [...] Sign Reading Time Taken Comments Blood Pressure 154/89 08/26/2015 12:59 PM EST Pulse 89 08/26/2015 12:59 PM EST Temperature - - Respiratory Rate - - Oxygen Saturation - - Inhaled Oxygen Concentration - - Weight 104.3 kg (230 lb) 08/26/2015 12:59 PM EST stated Height 180.3 cm (5' 11) 08/26/2015 12:59 PM EST stated Body Mass Index 32.08 08/26/2015 12:59 PM EST documented in this encounter Progress Notes Karly Farley PA - 08/26/2015 1:18 PM EST Vishnu comes in today accompanied by his status post decompression ulnar nerve left elbow 10/10/2014, Dr. Dye. This dates back to [employer] comp injury 03/31/2014. He is doing about the same. He continues to have some numbness and tingling in the small and ring fingers on the left hand. He is back to work essentially full duty and tolerating that well. He notes that he has some good days. If he does a lot of heavy lifting or repetitive motion with the left arm he does have increased symptoms. He has not found an elbow pad especially helpful. PHYSICAL EXAMINATION: Examination today shows a still positive Tinel's at the left elbow, full range of motion of the elbow without discomfort. He admits to decreased sensation in the ulnar nerve distribution on the left hand, but two-point discrimination is 5 to 6 mm on both left and right hands in the ulnar nerve distribution. Negative Wartenberg, negative Froment sign. IMPRESSION: Status post cubital tunnel decompression left elbow, date of surgery 10/10/2014, [employer] comp date of injury 03/31/2014. At this point we think and feel he has reached maximum medical improvement. It is possible he may have continued decreased symptoms of numbness and tingling overtime but that is hard to predict. He will continue to work full duty with a lifting capacity of 50 pounds and we have left followup on an as needed basis. documented in this encounter Plan of Treatment Not on filedocumented as of this encounter Visit Diagnoses Diagnosis Ulnar neuropathy at elbow of left upper extremity documented in this encounter Care Teams Laboratory Geneticist Relationship Specialty Start Date End Date None PCP - General 10/07/14 10/14/20 None documented as of this encounter
--- OUTSIDE RECORDS SUMMARY | 2022-05-06 01:07 | XMS_ITS | Encounter Summary ---
:1955 Author Organization [facility] [place] [address] Care Team Providers Name Role Phone None Primary Care Provider Unavailable Encounter Details Date Type Department Care Team Description 01/20/2015 Hospital Encounter XRay at [facility] Pain in left shoulder [address] [facility] [place] [phone] Social History Tobacco Use Types Packs/Day Years [...] on file documented as of this encounter Medications at Time of Discharge Medication Sig Dispensed Refills Start Date End Date acetaminophen (TYLENOL) Take 1,000 mg by 0 500 mg Tablet mouth every 6 hours as needed for Pain. ibuprofen (ADVIL;MOTRIN) Take 1 tablet by 30 tablet 12 10/1305/25/2015 600 mg TabletIndications: mouth every 6 hours pain as needed for Pain. Indications: Pain documented as of this encounter Plan of Treatment Not on filedocumented as of this encounter Procedures Procedure Name Priority Date/Time Associated Diagnosis Comme nts XR SHOULDER Routine 01/20/2015 11:49 AM Pain in left shoulder Results for this EDT procedure are i n the results section . 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 Glenohumeral joint normal. No periarticular calcifications. Narrative 01/20/2015 2:11 PM EDT EXAMINATION: SHOULDER MINIMUM TWO VIEWS/LEFT CLINICAL HISTORY: LEFT SHOULDER PAIN TECHNIQUE: 4 views LEFT shoulder COMPARISON: None FINDINGS: The glenohumeral joint appears unremarkable, no significant osteoarthritis or subluxation. There is moderate to marked arthropathy in the acromioclavicular joint, but no periarti cular calcifications are noted. The LEFT lung appears clear. Procedure Note Ernie Del Real MD - 01/20/2015Formatt ing of this note might be different from the original. EXAMINATION: SHOULDER MINIMUM TWO VIEWS/ LEFT CLINICAL HISTORY: LEFT SHOULDER PAIN TECHNIQUE: 4 views LEFT shoulder COMPARISON: None FINDINGS: The glenohumeral joint appears unremarkable, no significant osteoarthritis or subluxation. There is moderate to marked arthropathy in the acromioclavicular joint, but no periarti cular calcifications are noted. The LEFT lung appears clear. 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 Glenohumeral joint normal. No periarticular calcifications. Manjinder Mccollum MD IMG DX ORDERABLES documented in this encounter Visit Diagnoses Diagnosis Pain in left shoulder Pain in joint, shoulder region documented in this encounter Care Teams Door Clamp Operator Relationship Specialty Start Date End Date None PCP - General 10/07/14 10/14/20 None documented as of this encounter
--- OUTSIDE RECORDS SUMMARY | 2022-05-06 01:07 | XMS_ITS | Encounter Summary ---
:1955 Author Organization [facility] Address [address] [place] [address] Care Team Providers Name Role Phone GordonYanna SANJIV Primary Care Provider Reason for Visit Reason Comments Neck Pain Left Shoulder Pain Left Arm Pain Consultation (Routine) - Closed Specialty Diagnoses / Procedures Referred By Contact Refer red To Contact [facility] Sp[facility] Diagnoses CERVICALGIA Gilberto Sullivan MD [facility] [address] [facility] [address] [place] [address] Phone: Fax: Referral ID Status Reason Start Date Expiration Date Visits V isits Requested Authorized [id number] Closed Consult, Test 10/09/2020 10/09/2021 6 [facility] PCP Updated and/or Approved Encounter Details Date Type Department Care Team Description 11/04/2020 Office Visit Pain [facility] Sp[facility] Sheldon Joiner Pa in of left side of [place] [facility] [place] [facility] [address] [facility] [address] [place] [id number] Social History Tobacco Use Types Packs/Day Years [...] Sign Reading Time Taken Comments Blood Pressure 150/87 11/04/2020 9:54 AM EDT Pulse 88 11/04/2020 9:54 AM EDT Temperature - - Respiratory Rate - - Oxygen Saturation - - Inhaled Oxygen Concentration - - Weight 106.6 kg (235 lb) 11/04/2020 9:54 AM EDT Height 180.3 cm (5' 11) 11/04/2020 9:54 AM EDT Body Mass Index 32.78 11/04/2020 9:54 AM EDT documented in this encounter Progress Notes Sheldon Joiner MD - 11/04/2020 10:00 AM EDT Images from the original note were not included. Sheldon Joiner MD MS FAOA Department of Orthopaedics [facility] November 04, 2020 Mr. Leary is a 65-year-old ymiqf-omei-bntklitj gentleman seen today in the spine center in consultation from Dr. Sullivan. He is seen and evaluated for multiple complaints all of which include the left side of his body from his neck to his toes. His past history is notable for a left ulnar nerve transposition in about 2014 with residual numbness and tingling in the left fifth digit but otherwise his left upper extremity is completely unchanged from his baseline. He has neck pain, shoulder pain, tingling in the left fifth digit, thoracic pain on the left side low back and left leg pain down to the lateral toes. He does not describe focal weakness. He has no problems with gait, balance, fine motor control. His symptoms have been ongoing since February 2020. Is worse with sitting in a prolonged position.Night pain generally is not a problem as he uses CBD oil and this is been helpful. 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 Reports being otherwise healthy. Review of systems is negative for GI, , constitutional symptoms. Pain score over the past week is described as a 5. Body mass index is 32.77. This is a pleasant gentleman who changes position and moves easily about the office. His gait is normal. He can toe and heel walk without weakness. On inspection from the back his shoulders are level his pelvis is level his spine is straight all of which is normal in appearance with multiple areas of pain along the left paraspinal region. Cervical spine is nontender. Cervical rotation is full as is flexion extension all of which is pain-free though he does note some crepitance with turning to the left. Spurling's maneuver is negative. His upper and lower extremity motor exam is completely normal. Sensory function is diminished only in the left fifth digit. Reflexes are 2 at the upper extremities, 2 at the lower extremities with negative clonus and negative Babinski's. Chip reflexes are negative. He is not spastic or myelopathic. Cervical MRI is reviewed from 10/19/2020 from [facility]. This demonstrates age-appropriate degenerative changes with a left- sided osteophytic ridge C6-C7. Impression: Symptomatic left sided body pain. Specific etiology unclear. He does have a left-sided disc protrusion and osteophytic ridge C6-C7 as described above without cord effacement but it and of itself he does not describe symptoms in the distribution of this nerve. This would not explain his global left-sided symptoms. Although he had a worsening of his left upper extremity tingling he has had no radiculopathy. It certainly possible that he has stenosis in his low back responsible for left lower extremity symptoms but this still would not explain his thoracic pain. Thus the specific etiology of his multiple left-sided body complaints remains unclear. It is reassuring that he has a normal neur ologic exam and his MRI is notable for only a small osteophytic ridge as described above. Recommendation: I reviewed all this with the patient in detail including reviewing the imaging studies. Given the global nature of his symptoms quite difficult to identify a single body part as causation. I am reassured by his neurologic exam and his MRI. I recommended continued physical therapy, consi deration of massage or acupuncture and topical ointment use. I see no indication for injections and clearly no indication for operative intervention. Questions were answered. No further spine center follow-up indicated. Voice recognition was used for this dictation and I apologize for any mis-wording. Spine Center Response Trends Patient-reported scores: myD-H Spine Questionnaire responses 01/20/2015 11/04/2020 VR36 - Physical Function (Range: 0-100) 48.1 - VR36 - Bodily Pain (Range: 0-100) 32.2 - VR36 - PCS (Range: 0-100) 44.8 - VR36 - MCS (Range: 0-100) 36.4 - Oswestry Disability Index (Range: 0-100) - 30 (Moderate disability) Neck Disability Index (Range: 0-100) - 31.11 (Moderate disability) PROMIS-10 Physical Health Score - 39.8 PROMIS-10 Mental Health Score - 43.5 Sheldon Joiner MD MS KAROA Professor of Orthopaedic Surgery [facility] ([facility]) Department of Orthopaedic Surgery [place] [phone] [email or web address] documented in this encounter Plan of Treatment Not on filedocumented as of this encounter Visit Diagnoses Diagnosis Pain of left side of body Generalized pain documented in this encounter Care Teams Barrel Lathe Operator Relationship Specialty Start Date End Date Yanna Leyva APRN PCP - General Family Medicine 10/15/20 [address] [place] [address] documented as of this encounter
--- OUTSIDE RECORDS SUMMARY | 2022-05-06 01:07 | XMS_ITS | Encounter Summary ---
:1955 [place] [address] Care Team Providers Name Role Phone None Primary Care Provider Unavailable Encounter Details Date Type Department Care Team Description 05/13/2020 Ancillary [facility] [place] [address] ORTHOPAEDIC SURGERY [phone] [place] [address] (Wo rk) Social History Tobacco Use Types [...] Associated Diagnosis Comme nts FILM LIBRARY Routine 05/13/2020 12:00 AM Results for this STORAGE ONLY DX EDT procedure ar e in SHOULDER the results section. documented in this encounter Results Film Library- Storage Only DX Shoulder (05/13/2020 12:00 AM EDT) Specimen (Source) Anatomical Location Collection Method / Collectio n Time Received Time / Laterality Volume Narrative RAD - 10/09/2020 10:28 AM EST This exam is auto-finalizing. It's purpo se is for storage only. Jt Dye MD IMG FILM LIBRARY ORDERABLES Performing Organization Address City/State/ZIP Code Phon e Number RAD [place], [place] documented in this encounter Visit Diagnoses Not on filedocumented in this encounter Care Teams Flamer Sealer Relationship Specialty Start Date End Date None PCP - General 10/07/14 10/14/20 None documented as of this encounter
--- OUTSIDE RECORDS SUMMARY | 2022-05-06 01:07 | XMS_ITS | Encounter Summary ---
:1955 Author Organization [place] [id number] Care Team Providers Name Role Phone None Primary Care Provider Unavailable Encounter Details Date Type Department Care Team Description 10/10/2014 Surgery Outpatient Surgery Erin Dye MD NEUROPLASTY &/OR Center [facility] NERVE AT ELBOW ([facility] ORTHOPAEDIC S URGERY 7.26) [place] [address] [place] [phone] Social History Tobacco Use Types Packs/Day Years [...] closest emergency room or call the hospital cryptographic machine operator at [phone] and ask for physician hotel lobby concierge covering for your physician. Questions or problems after 5pm or on a weekend: Call the [facility] cryptographic machine operator at and ask for the physician hotel lobby concierge covering for your doctor. You received 1000 [...] on them. You can also take an sssg-mfp-caosubq stool softener, colace or senna, to facilitate [...] incision or dressings wet. Call your doctor (#[phone]) if: You have a fever > 101.5 or experience chills Increased discharge from the incision Any redness or swelling around the incision Increased pain or change in the pain that is not controlled by your pain medications WHERE TO CALL WITH QUESTIONS [facility] Ask for the resident hotel lobby concierge for your provider Outpatient Surgery Center (7:00am - 5:00pm) Future Appointments Date Time Provider Department Center 10/20/2014 10:55 AM Jt Dye MD [facility] documented in this encounter Medications at [...] Dye MD - 10/10/2014 11:28 AM EDT [facility] Operative Note Patient Name: Vishnu Leary : [id number] MR#: [id number] Case Date: 10/10/2014 Surgeon: Surgeon(s) and Role: [...] A preoperative timeout was performed as per [facility] protocol. her left arm was exsanguinated with [...] The nerve was tracked proximally, and the [place] of [place] was released. The medial intermuscular septum was [...] Operative Note Patient Name: Vishnu Leary : [id number] MR#: [id number] Case Date: 10/10/2014 Surgeon: Surgeon(s) and Role: [...] Day of Surgery (Day of Procedure), Routine BUpivacaine-EPINEPHrine 0.25 %-1:200,000 Given 10/10/2014 1:13 P M EDT 25 mg injection ONCE PRN, Starting on Mon10/10/14 at 1313, Until Mon10/10/14 at 1418, Intra-Operative (Intra-Procedure), Routine gabapentin (NEURONTIN) capsule 600 mg Given [...] Routine documented in this encounter Care Teams Grout Worker Relationship Specialty Start Date End Date None PCP - General 10/07/14 10/14/20 None documented as of this encounter
--- OUTSIDE RECORDS SUMMARY | 2022-05-06 01:07 | XMS_ITS | Encounter Summary ---
:1955 [place] [address] Care Team Providers Name Role Phone None Primary Care Provider Unavailable Encounter Details Date Type Department Care Team Description 10/10/2014 Anesthesia Event Outpatient Surgery Alice Flynn [facility] [place] [address] [place] Janki [place] [employer] Andrew Russell MD [facility] [place] [address] [place] [address] Anesthesia Record Procedure Summary Procedure Name Responsible Anesthesia Start Anesthesia Stop Anesthesiologist Time Time NEUROPLASTY &/OR Erin Flynn DO 10/10/14 1209 10/10/14 13 26 TRANSPOSITION, ULNAR NERVE AT ELBOW (WRVU 7.26) (Left Elbow) Events Date Time Event Comment 10/10/2014 1135 1209 Start 1211 AN Verify 1212 An Start Data 1214 An Induction 1216 An Intubation 1220 Anesthesia Ready 1236 An Tourn Inflated 250 mmHg 1237 Skin Incision 1301 An Tourn Deflated 1313 Quick Note 0.25% marcaine w ith 1:200,000 EPI 10 ml 1318 Extubation/LMA Out 1322 an stop data 1326 Stop Name Total Midazolam 2 mg fentaNYL 100 mcg IV Lidocaine 40 mg Propofol 270 mg Ondansetron 8 mg Dexamethasone 4 mg ceFAZolin (ANCEF) 2,000 mg in dextrose 5% 106.06 mL 2 g lactated ringers infusion 1,000 mL 600 mL Agents Name O2 Air N2O Sevoflurane (et) Blood No blood administrations on file. Lines, Drains, and Airways Type Details Placement Removal Incision 10/10/14; elbow; 03/28/22 10/10/14 0000 by Preston lang, 03/28/22 1715 by (LDA cleanup utility CARY Viramontes Die rdre L RA#[id number]); 1715 (LDA cleanup utility RA#[id number]) PIV 10/10/14; 1132; median 10/10/14 1132 by Rodríguez, 10/10/14 1405 by cubital vein right CARY Montes Caro lanne, (antecubital fossa); REPAIR ELECTRIC MOTOR ASSEMBLER gntj-oxg-knnlda catheter system; 20 gauge; intradermal injection, tolerated well, appears comfortable; 10/10/14; 1405 documented in this encounter Social History Tobacco Use Types Packs/Day Years [...] on file documented as of this encounter OR Notes Anesthesia Postprocedure Evaluation - Erin Flynn DO - 10/10/2014 2:31 PM EDT Patient: Vishnu Leary Procedure(s) Performed: Procedure(s): NEUROPLASTY &/OR TRANSPOSITION, ULNAR NERVE AT ELBOW Actual Anesthetic: general Patient location: PACU Post-op pain: Adequate analgesia Post-op nausea: no nausea or vomiting Last Vitals: Filed Vitals: 10/10/14 1400 BP: Pulse: Temp: Resp: 18 Post-op cardiovascular and respiratory status: is stable Level of consciousness: awake, alert and oriented Complications: no apparent complications and tolerated the procedure well Fluid Status: normal Anesthesia Preprocedure Evaluation - Erin Flynn DO - 10/10/2014 9:59 AM EDT Pre-Anesthesia Evaluation for: Vishnu Leary a 58 y.o. male. Procedure(s): NEUROPLASTY &/OR TRANSPOSITION, ULNAR NERVE AT ELBOW Patient Active Problem List Diagnosis ??? Ulnar neuropathy at elbow of left upper extremity ??? Medial epicondylitis of elbow No past medical history on file. No past surgical history on file. History Substance Use Topics ??? Smoking status: Never Smoker ??? Smokeless tobacco: Current User Types: Chew ??? Alcohol Use: Yes Comment: occasional History Drug Use No No Known Allergies Medications: MAR and/or home medications have been reviewed. Physical Exam: There were no vitals filed for this visit. There is no weight on file to calculate BMI. Airway Assessment: Mallampati: II Neck ROM: full Cardiovascular Assessment: cardiovascular exam normal Pulmonary Assessment: pulmonary exam normal Dental Assessment: [facility] Assessment: Patient is wearing No contact(s). IV access: Peripheral line Other exam findings: Few Chipped Teeth. Nothing loose Anesthesia Plan: ASA 2 general, with a(n) intravenous induction 58 yo male for neuroplasty/transposition ulnar nerve at elbow (L). No hx of difficulty w anesthesia. Pt denies CP/SOB/PND/Orthopnea/GERD Plan GA/MARIANA/VA and IV maint/p op PACU care and IV pain control. IC for anesthesia discussed and obtained. Region - Other Informed Consent: Anesthetic plan and risks discussed with patient and spouse. Plan discussed with SAFEKEEPING CLERK. [facility]. Assessment: documented in this encounter Plan of Treatment Not on filedocumented as of this encounter Visit Diagnoses Not on filedocumented in this encounter Administered Medications Inactive Administered Medications - up to 3 most recent administrations Medication Order MAR Action Action Date Dose Rate Site ceFAZolin (ANCEF) 2,000 mg in Given 10/10/2014 12:09 PM EDT 2 g dextrose 5% 106.06 mL 2,000 mg (2 g), Intravenous, EVERY 3 HOURS, 1 dose, First dose on Mon10/10/14 at 1145, Redose after 3 hours., Intra-Operative (Intra-Procedure), Indication for (Active or Suspected): Prophylaxis dexamethasone (DECADRON) injection Given 10/10/2014 12:18 PM EDT 4 mg PRN, Starting on Mon10/10/14 at 1218, Until Mon10/10/14 at 1326, Anesthesia Intra-op, Routine fentaNYL 50mcg/mL injection Given 10/10/2014 1:14 PM EDT 25 mcg PRN, Starting on Mon10/10/14 at 1305, Until Mon10/10/14 at 1326, Pain, Anesthesia Intra-op, Routine Given 10/10/2014 1:11 PM EDT 25 mcg Given 10/10/2014 1:10 PM EDT 25 mcg lidocaine (PF) (XYLOCAINE) 100 mg/5 mL (2 %) Given 12:14 PM EDT 40 mg injection PRN, Starting on Mon10/10/14 at 1214, Until Mon10/10/14 at 1326, Anesthesia Intra-op, Routine midazolam (PF) (VERSED) 1 mg/mL injectio n Given 10/10/2014 12:15 PM EDT 2 mg PRN, Starting on Mon10/10/14 at 1215, Until Mon10/10/14 at 1326, Sleep, Anesthesia Intra-op, Routine ondansetron (ZOFRAN) injection Given 10/10/2014 1:00 PM EDT 8 mg PRN, Starting on Mon10/10/14 at 1300, Until Mon10/10/14 at 1326, Nausea, Anesthesia Intra-op, Routine propofol (DIPRIVAN) 10 mg/mL bolus injection Given 12:14 PM EDT 270 mg (Anesthesia) PRN, Starting on Mon10/10/14 at 1214, Until Mon10/10/14 at 1326, Anesthesia Intra-op documented in this encounter Care Teams Broom Bundler Relationship Specialty Start Date End Date None PCP - General 10/07/14 10/14/20 None documented as of this encounter
--- OUTSIDE RECORDS SUMMARY | 2022-05-06 01:07 | XMS_ITS | Encounter Summary ---
:1955 Author Organization [employer] [place] [address] Care Team Providers Name Role Phone None Primary Care Provider Unavailable Reason for Visit Reason Comments Left Arm Pain L cubital tunnel decomp DOS 10/10/14 Encounter Details Date Type Department Care Team Description 05/25/2015 Office Visit Orthopaedics at [facility] Jt Dye, Ulnar neuropathy at [facility] elbow of left upper [place] [address] [place] [address] ORTHOPAEDIC SURGERY [place] [address] Social History Tobacco Use Types Packs/Day Years [...] Sign Reading Time Taken Comments Blood Pressure 156/94 05/25/2015 9:53 AM EDT Pulse 84 05/25/2015 9:53 AM EDT Temperature - - Respiratory Rate - - Oxygen Saturation - - Inhaled Oxygen Concentration - - Weight 106.6 kg (235 lb) 05/25/2015 9:53 AM EDT verbal Height 180.3 cm (5' 11) 05/25/2015 9:53 AM EDT verbal Body Mass Index 32.78 05/25/2015 9:53 AM EDT documented in this encounter Progress Notes Jt Dye MD - 05/25/2015 10:45 AM EDT [place] returns for evaluation of his left elbow following cubital tunnel decompression. He reports that he is doing reasonably well. His sensation in his left hand was measured. He has 6 mm two-point discrimination in the median nerve distribution digits and 6 to 7 mm in the ulnar. He has no intrinsic atrophy. His pinch strength is quite good. He has normal sensation around the elbow. He has normal elbow range of motion. Overall, he is progressing well. I will advance him to full duty, which will include a 50-pound lifting restriction. He may gradually work into overtime as per his tolerance. I would like to see him back in three months at which point I would anticipate that he will be at maximal medical improvement. documented in this encounter Plan of Treatment Not on filedocumented as of this encounter Visit Diagnoses Diagnosis Ulnar neuropathy at elbow of left upper extremity documented in this encounter Care Teams Real Estate Clerk Relationship Specialty Start Date End Date None PCP - General 10/07/14 10/14/20 None documented as of this encounter
--- OUTSIDE RECORDS SUMMARY | 2022-05-06 01:07 | XMS_ITS | Encounter Summary ---
:1955 Author Organization [facility] [place] [address] Care Team Providers Name Role Phone Barrie Addison MD Primary Care Provider [phone] Encounter Details Date Type Department Care Team Description 07/23/2014 Hospital Encounter XRay at [facility] [place] Pain in left elbow 1 [facility] [place] [address] Social History Tobacco Use Types Packs/Day [...] acetaminophen (TYLENOL) Take 1,000 mg by 0 08/18/2014 500 mg Tablet mouth every 6 hours as needed for Pain. documented as of this encounter Plan of Treatment Not on filedocumented as of this encounter Procedures Procedure Name Priority Date/Time Associated Diagnosis Comme nts XR ELBOW 3 VIEW Routine 07/23/2014 8:59 AM Pain in left elbow Results for this COMPLETE EST procedure are i n the results section. documented in this encounter Results XR elbow 3 view complete (07/23/2014 8:59 AM EST) Anatomical Region Laterality Modality Elbow N/A Radiographic Imaging Specimen (Source) Anatomical Collection Method Collection Time Re ceived Time Location / / Volume Laterality 07/23/2014 8:59 AM EST Impressions 07/23/2014 9:11 AM EST IMPRESSION: No abnormality is seen. Narrative 07/23/2014 9:11 AM EST EXAMINATION: ELBOW 3 VIEW COMPLETE/LEFT CLINICAL HISTORY: lEFT ELBOW PAIN TECHNIQUE: AP, oblique and lateral of th e left elbow. COMPARISON: None FINDINGS: No fracture or dislocation is seen. There is no joint effusion. Procedure Note Mike Newman MD - 07/23/2014 EXAMINATION: ELBOW 3 VIEW COMPLETE/LEFT CLINICAL HISTORY: lEFT ELBOW PAIN TECHNIQUE: AP, oblique and lateral of th e left elbow. COMPARISON: None FINDINGS: No fracture or dislocation is seen. There is no joint effusion. IMPRESSION IMPRESSION: No abnormality is seen. Rolando Wilkes MD IMG DX ORDERABLES documented in this encounter Visit Diagnoses Diagnosis Pain in left elbow Pain in joint, upper arm documented in this encounter Care Teams Polysomnography Technologist Relationship Specialty Start Date End Date Barrie Addison MD PCP - General 06/22/10 07/28/[address] [place] [place] [address] documented as of this encounter
--- OUTSIDE RECORDS SUMMARY | 2022-05-06 01:07 | XMS_ITS | Encounter Summary ---
:1955 Author Organization [facility] [place] [address] Care Team Providers Name Role Phone None Primary Care Provider Unavailable Reason for Referral Physical Therapy (Routine) - Specialty Diagnoses / Procedures Referred By Contact Refer red To Contact Physical Therapy Diagnoses Ulnar neuropathy at elbow of left upper extremity Karly Farley, PA [address] [place] [address] Referral ID Status Reason Start Date Expiration Date Visits V isits Requested Authorized [id number] Evaluate and 11/13/2014 05/12/2015 12 12 Treat Reason for Visit Reason Comments Follow Up Surgery L CUBITAL TUNNEL DECOMPRESSI ON DOS 10/10/14 w/c Encounter Details Date Type Department Care Team Description 11/13/2014 Office Visit Orthopaedics at [facility] [place] Karly Farley, Ulnar neuropathy at [facility] [place] elbow of left upper [address] [place] [address] [place] [address] [phone] Social History Tobacco Use Types Packs/Day Years [...] Sign Reading Time Taken Comments Blood Pressure 155/99 11/13/2014 10:32 AM EDT PCP SVETA E Pulse 79 11/13/2014 10:32 AM EDT Temperature - - Respiratory Rate - - Oxygen Saturation - - Inhaled Oxygen Concentration - - Weight 104.3 kg (230 lb) 11/13/2014 10:32 AM EDT STATED Height 180.3 cm (5' 11) 11/13/2014 10:32 AM EDT STATED Body Mass Index 32.08 11/13/2014 10:32 AM EDT documented in this encounter Progress Notes Karly Farley PA - 11/13/2014 11:26 AM EDT This 59-year-old female comes in today status post decompression of left ulnar nerve at the elbow by Dr. Dye on 10/10/2014. He is doing fairly well. He states he still has some numbness and tingling in the ring and small fingers on his hand. He finds that the arm is not very tolerant of activities. After a few minutes of doing something, the arm will start aching from the forearm up into the shoulder. Examination today shows him to be in no acute distress. He denies fever, chills, or other constitutional symptoms. Examination of the elbow shows no swelling, no erythema, or warmth. The incision is well-healed. He has a full range of motion of the elbow with no significant discomfort. He admits to slightly decreased sensation in the fourth and fifth fingers on the left hand. Hand is well perfused. He has full range of motion of all fingers. IMPRESSION: Left ulnar nerve decompression, 10/10/2014, Workman's compensation, date of injury 03/31/2014. TREATMENT: It was explained to Vishnu that once the pressure is taken off the nerve, it can take several months up to a year for the nerve to really come around. I have recommended a short course of physical therapy for range of motion and strengthening and anticipate that he can return to work on November 24 for four hours per day x1 week. The following week, six hours a day per one week for one week and then on December 08, eight hours per day. We will plan on seeing him back for hopefully a final check in six weeks. documented in this encounter Plan of Treatment Scheduled Referrals Name Type Priority Associated Diagnoses Order S chedule Referral to Outpatient Referral Routine Ulnar neuropathy at O rdered: Physical Therapy elbow of left upper 10/29 extremity documented as of this encounter Visit Diagnoses Diagnosis Ulnar neuropathy at elbow of left upper extremity documented in this encounter Care Teams Transcribing Operators Supervisor Relationship Specialty Start Date End Date None PCP - General 10/07/14 10/14/20 None documented as of this encounter
--- OUTSIDE RECORDS SUMMARY | 2022-05-06 01:07 | XMS_ITS | Encounter Summary ---
:1955 Author Organization [facility] [place] [address] Care Team Providers Name Role Phone None Primary Care Provider Unavailable Encounter Details Date Type Department Care Team Description 12/24/2014 Orders Only Orthopaedics at [facility] Manjinder Mccollum, [place] [address] ORTHOPAEDIC SURGERY [place] [address] Social History Tobacco Use Types Packs/Day Years [...] Not on filedocumented as of this encounter Results XR shoulder (01/20/2015 11:49 [...] left shoulder Pain in joint, shoulder region Pain in left shoulder Pain in joint, shoulder region documented in this encounter Care Teams Business Improvement Manager Relationship Specialty Start Date End Date None PCP - General 10/07/14 10/14/20 None documented as of this encounter
--- OUTSIDE RECORDS SUMMARY | 2022-05-06 01:07 | XMS_ITS | Encounter Summary ---
:1955 Author Organization [facility] [place] [address] Care Team Providers Name Role Phone Unknown Primary Care Provider Unavailable Encounter Details Date Type Department Care Team Description 08/19/2014 External Results Neurology at [facility] Mu Sanchez MD [facility] [place] [address] NEUROLOGY DEPT. [phone] [place], [place] [address] (Wo rk) Social History Tobacco [...] Name Priority Date/Time Associated Diagnosis Comme nts EMG SCAN Routine 08/18/2014 documented in this encounter Results Scan Doc: EMG (08/18/2014) Narrative This result has an attachment that is no t available. Mu Sanchez MD MEDIA MGR SCAN EXT ORDR/RSLT documented in this encounter Visit Diagnoses Not on filedocumented in this encounter Care Teams Supply Chain Systems Manager Relationship Specialty Start Date End Date Unknown PCP - General 07/29/14 10/06/14 None documented as of this encounter
--- OUTSIDE RECORDS SUMMARY | 2022-05-06 01:07 | XMS_ITS | Encounter Summary ---
:1955 Author Organization [facility] [place] [address] Care Team Providers Name Role Phone None Primary Care Provider Unavailable Reason for Visit Reason Comments Follow Up Surgery sp insitu decompression, lef t cubital tunnel dos 10/10/14 doi 03/31/14 Encounter Details Date Type Department Care Team Description 12/24/2014 Office Visit Orthopaedics at [facility] Jt Dye, Ulnar neuropathy at elbow of left upper extremity; [facility] [place] [address] [place] [address] ORTHOPAEDIC SURGERY [place] [address] Social History Tobacco Use Types Packs/Day Years [...] Sign Reading Time Taken Comments Blood Pressure 147/90 12/24/2014 11:00 AM EDT Pulse 66 12/24/2014 11:00 AM EDT Temperature - - Respiratory Rate - - Oxygen Saturation - - Inhaled Oxygen Concentration - - Weight 104.3 kg (230 lb) 12/24/2014 11:00 AM EDT stated Height 177.8 cm (5' 10) 12/24/2014 11:00 AM EDT stated Body Mass Index 33 12/24/2014 11:00 AM EDT documented in this encounter Progress Notes Jt Dye MD - 12/24/2014 11:15 AM EDT Vishnu Leary is two and a half months following left in situ cubital tunnel decompression. He does not notice any major improvement in his hand numbness. His incision is healed in a benign fashion. He has good elbow range of motion. He has no intrinsic atrophy. He has a negative Wartenberg sign. Negative Froment sign. Negative clawing of hand. He has between 6 and 8 mm two-point discrimination in his ulnar aspect of his ring and small finger. He also is reporting that he is developing some progression of left shoulder pain and that he has what he describes as knots that his therapist has to work through with him in therapy. He is questioning why this has not been evaluated and would like to see one of our shoulder specialists. I will make him a referral for such. With regards to his elbow, overall I think he is about where I would expect him to be. He is back at work with a 20-pound lifting restriction 8 hours per day five days per week. I will continue his work restrictions and I will see him back in two months for what I suspect will be final check with me. He will have a follow up with Dr. Wilkes or Dr. Mccollum or one of the midlevel providers in the clinic. documented in this encounter Plan of Treatment Not on filedocumented as of this encounter Visit Diagnoses Diagnosis Ulnar neuropathy at elbow of left upper extremity Pain in left shoulder Pain in joint, shoulder region documented in this encounter Care Teams Society Editor Relationship Specialty Start Date End Date None PCP - General 10/07/14 10/14/20 None documented as of this encounter
--- OUTSIDE RECORDS SUMMARY | 2022-05-06 01:07 | XMS_ITS | Encounter Summary ---
:1955 Author Organization [facility] Address [facility] [place] [address] Care Team Providers Name Role Phone None Primary Care Provider Unavailable Reason for Visit Reason Comments Follow Up Surgery L CUBITAL TUNNEL DECOMPRESSI ON DOS 10/10/14 Encounter Details Date Type Department Care Team Description 10/20/2014 Office Visit Orthopaedics at [facility] [place] Jt Dye, Ulnar neuropathy at [facility] elbow of left upper [address] [place] [address] [place] [address] ORTHOPAEDIC SURGERY [place] [address] Social History Tobacco Use Types Packs/Day Years [...] Sign Reading Time Taken Comments Blood Pressure 141/97 10/20/2014 11:02 AM EDT Pulse 77 10/20/2014 11:02 AM EDT Temperature - - Respiratory Rate - - Oxygen Saturation - - Inhaled Oxygen Concentration - - Weight 104.3 kg (230 lb) 10/20/2014 11:02 AM EDT STATED Height 180.3 cm (5' 11) 10/20/2014 11:02 AM EDT STATED Body Mass Index 32.08 10/20/2014 11:02 AM EDT documented in this encounter Progress Notes Karly Farley PA - 10/20/2014 11:21 AM EDT Vishnu comes in today status post left ulnar nerve decompression at the elbow on 10/10/2014, by Dr. Dye. Transposition of the nerve was not necessary. The patient is doing well. He still has a little bit of numbness and tingling in the fingers, but he feels that he has less achiness and less numbness and tingling. Overall is feeling better. Examination today shows no significant swelling. No significant stiffness. The incision is well healed without any evidence of infection, he denies fever, chills, or other constitutional symptoms. Sutures removed. Steri-Strips applied. We will see him back in three weeks and anticipate we can return him to work at that time. No work until seen again. documented in this encounter Plan of Treatment Not on filedocumented as of this encounter Visit Diagnoses Diagnosis Ulnar neuropathy at elbow of left upper extremity documented in this encounter Care Teams Dandy Operator Relationship Specialty Start Date End Date None PCP - General 10/07/14 10/14/20 None documented as of this encounter
--- NOTE | 2022-05-06 07:00 | DI.RAD_ITS ---
Exam(s) XR LUMBAR SPINE COMPLETE EXAM: XR LUMBAR SPINE COMPLETE CLINICAL HISTORY: Re per MAYDA - Assess Deg Disc DisEASE,BACK PAIN, M51.36. TECHNIQUE: 2D digital imaging was performed. COMPARISON: No exams were available for comparison FINDINGS: Five views: Is no evidence of compression fracture. There is advanced disc space narrowing at L5-S1 level and th ere is approximately 1 cm anterior listhesis of L5 upon S1. There is bilateral foraminal stenosis a t this level. Mild disc space narrowing at L4-5 and L3-4 levels. No scoliosis. No osseous lesions. SI joints unr emarkable. IMPRESSION: Significant L5-S1 level findings as described above. DATA REPOSITORY: RADIATION DOSE DELIVERED:
--- NOTE | 2022-05-06 07:00 | DI.RAD_ITS ---
Exam(s) XR HIP LT COMPLETE AP PELVIS EXAM: XR HIP LT COMPLETE AP PELVIS CLINICAL HISTORY: Rec Per MAYDA Persistent Hip Pain,,LT M25.552. TECHNIQUE: 2D digital imaging was performed. COMPARISON: No exams were available for comparison FINDINGS: Two views. AP view pelvis and lateral view of left hip reveal no evidence of pelvic hip fracture. However, ther e is severe advanced degenerative [id number] narrowing of the superior aspect of the left hip joint space and large opposing degenerative subarticular cyst in the roof of the acetabulum and superior a spect of the femoral head. Opposite-right hip appears unremarkable. IMPRESSION: Advanced osteoarthritic degenerative changes in the left hip. DATA REPOSITORY: RADIATION DOSE DELIVERED:
== END ==
PROVIDERS: PCP Nurse Practitioner Family; Visit Provider Nurse Practitioner Family
DX: M16.12 Unilateral primary osteoarthritis, left hip (principal); M43.17 Spondylolisthesis, lumbosacral region; M48.061 Spinal stenosis, lumbar region without neurogenic claudication; M48.07 Spinal stenosis, lumbosacral region
CPT/HCPCS: 72110; 73502

== ENCOUNTER 2022-05-26 03:05 | Outpatient (CLI) | payer OTHER, SELFPAY ==
--- NOTE | 2022-05-26 07:30 | DI.MRI_ITS ---
Exam(s) MR UPPER JOINT LT WO EXAM: MR UPPER JOINT LT WO CLINICAL HISTORY: lt shoulder pain, m25.512. TECHNIQUE: Multiplanar multisequence MRI was performed. COMPARISON: CR XR SHOULDER LT COMPLETE 2+V from 05/13/2020 FINDINGS: BONES: There is no fracture or contusion pattern. JOINTS: Degenerative changes are seen at the acromioclavicular joint. The glenohumeral joint is norm al. TENDONS: Supraspinatus: There are findings suspicious for a bursal surface tear of the supraspinatus tendon an teriorly near its insertion site. The tear may be full-thickness. (Series 7001, image 13). Infraspinatus: Unremarkable. Subscapularis: Unremarkable. Teres Minor: Unremarkable. Biceps and Harwood: Unremarkable. MUSCLES: Unremarkable. GLENOID LABRUM: There is irregular size and signal seen in the posterior superior labrum. This may r epresent degeneration or tear. SOFT TISSUES: Unremarkable. LIGAMENTS: Unremarkable. OTHER: There is fluid seen in the subacromial subdeltoid bursa. IMPRESSION: 1. There is a tear of the supraspinatus tendon at its bursal surface. The tear appears to be full-th ickness. 2. Irregular size and signal the posterior superior labrum suspicious for tear versus degeneration. 3. Fluid seen in the subacromial subdeltoid bursa. 4. Degenerative changes at the acromioclavicular joint. DATA REPOSITORY:
--- NOTE | 2022-05-26 07:30 | DI.MRI_ITS ---
Exam(s) MR LUMBAR SPINE WO EXAM: MR LUMBAR SPINE WO CLINICAL HISTORY: sciatica, lumbar back pain, m54.32. TECHNIQUE: Multiplanar multisequence MRI of the Lumbar spine was performed. COMPARISON: CR XR LUMBAR SPINE COMPLETE from 05/06/2022 FINDINGS: Bones: The last intervertebral disc space is designated the L5/S1 level for the numbering purpose of this examination. The vertebral body heights are well maintained. There is L5 spondylolysis and gra de 1 spondylolisthesis of L5 on S1. Multilevel degenerative disc disease is present throughout the ferdinand mbar spine. There is a hemangioma or fatty rest in the L1 left pedicle. Cord: The conus tip ends at the L1 level. It is of normal size and signal intensity. T12-L1: No disc herniations or bulges are present. No central spinal canal or neural foraminal stenos is. L1-2: No disc herniations or bulges are present. No central spinal canal or neural foraminal stenosis . L2-3: There is a mild diffuse disc bulge. No significant central spinal canal stenosis is seen. The re is mild narrowing of the neural foramen bilaterally. L3-4: There is a mild diffuse disc bulge. No significant central spinal canal stenosis is present. There is mild bilateral neural foraminal narrowing. L4-5: Degenerative changes of the facets are present. No central spinal canal or neural foraminal st enosis. L5-S1: There is a diffuse disc bulge. There is narrowing of the transverse diameter of the spinal ca nal at this level measuring 9 mm. There is marked bilateral neural foraminal stenosis. Soft tissues: The visualized SI joints and sacrum are well maintained. The paraspinal soft tissues ar e unremarkable. IMPRESSION: 1. Multilevel degenerative changes in the lumbar spine resulting in central spinal canal and neural f oraminal stenosis. The findings are most marked at the L5-S1 disc space where there is marked bilate ral neural foraminal stenosis. 2. L5 spondylolysis and grade 1 spondylolisthesis of L5 on S1. DATA REPOSITORY:
== END 2022-05-26 03:25 ==
LOC: DI 03:05
PROVIDERS: PCP Nurse Practitioner Family; Visit Provider Nurse Practitioner Family
DX: M54.32 Sciatica, left side (principal); M75.102 Unspecified rotator cuff tear or rupture of left shoulder, not specified as traumatic; M19.012 Primary osteoarthritis, left shoulder; M43.17 Spondylolisthesis, lumbosacral region; M43.06 Spondylolysis, lumbar region
CPT/HCPCS: 72148; 73221

== ENCOUNTER 2022-06-01 13:12 | Outpatient (CLI) | payer OTHER, SELFPAY ==
--- NOTE | 2022-06-01 06:00 | DI.RAD_ITS ---
Exam(s) XR PAIN CLINIC CERVICAL SP 2V EXAM: XR PAIN CLINIC CERVICAL SP 2V CLINICAL HISTORY: Dx: Cervical Radiculopathy. TECHNIQUE: Fluoroscopy was provided for the referring physician for guidance with performing pain cl inic injection procedure. COMPARISON: No exams were available for comparison FINDINGS: Please see procedure note for details. Fluoro time: 18.3 seconds RADIATION DOSE DELIVERED: Ka,r=5.23 mGy
[2022-06-01 13:34] VITALS: BP 138/77; PULSE 91; RESP 20; TEMP 36.6; O2SAT 97
[2022-06-01] MEDS: Dexamethasone Sod. Phos./Pres-Free 10 MG/ML VIAL IJ (14:10)
[2022-06-01] MEDS: Omnipaque 240 MG/ML 50 ML BTL IJ (14:11)
[2022-06-01 14:16] VITALS: BP 138/82; PULSE 91; RESP 20; O2SAT 97
--- NOTE | 2022-06-01 14:50 | PDOC.PAIN_ITS ---
Date of service: 06/01/22 Time of Service: 14:50 Pain Clinic Procedure Note Procedure Note Procedure Note: Cervical Epidural Steroid Injection Vishnu Leary has been referred to the [facility] for cervical epidural steroid injection. COMMENTS: He did very well with this procedure in the past. Pre-procedure pain VAS was 6/10. Dx: Cervical radiculopathy Sapphire was interviewed and the medical record reviewed. There were no medical, pharmacologic, radiographic or other structural contraindications to attempting fluoroscopically guided epidural steroid injection. Risks and expected side effects as well as potential benefit of the procedure were reviewed with Sapphire , and Sapphire voiced concerns addressed. The printed consent form was signed and witnessed. Standard time-out procedure was performed. The patient was placed in the prone position on the fluoroscopy table and automated blood pressure cuff and pulse oximeter applied. The skin entry point for entering the epidural space by a midline C7-T1 interlaminar approach was identified under fluoroscopy and marked. Following thorough Chlorhexadine preparation of the skin and draping and 1% lidocaine infiltration of the skin entry point and subcutaneous tissues, an 18 gauge Tuohy needle was placed under fluoroscopic guidance and with loss of resistance technique into the C7-T1 epidural space. Upon needle placement and loss of resistance there were no paresthesiae or return of blood or CSF through the needle. 1 cc of Omnipaque 240 was injected with clear epidural spread in the A/P, lateral and oblique views. 15 mg of preservative free Dexomethasone was injected with no unusual discomfort expressed by Sapphire. This was flushed with 1 cc of normal saline. Sapphire 's vital signs were stable throughout the procedure and were as recorded in the docflowsheet by the nursing staff. Follow up plans and appointments were discussed with the Sapphire. Post procedure instruction was given as documented in nursing documentation and having met discharge criteria, Sapphire was discharged from the Pain Management Center. COMMENTS: post-proceure pain VAS was 6/10. No IV required/requested. Tank Conti DO, MPH [facility] Management [facility] CC: Yanna Leyva
== END 2022-06-01 13:13 | disposition home or self-care (01) ==
PROVIDERS: PCP Nurse Practitioner Family; Visit Provider Preventive Medicine Occupational Medicine
DX: M54.12 Radiculopathy, cervical region (principal)
CPT/HCPCS: 62321; 72040; Q9967

== ENCOUNTER 2022-08-11 02:38 | Outpatient (CLI) | payer OTHER, SELFPAY ==
--- NOTE | 2022-08-11 09:30 | DI.MRI_ITS ---
Exam(s) MR CERVICAL SPINE WO EXAM: MR CERVICAL SPINE WO CLINICAL HISTORY: CERVICAL RADICULAR PAIN, LT SHOULDER PAIN,M54.12,M25.512,COMPARE TO PREV TECHNIQUE: Multiplanar multisequence MRI of the cervical spine was performed without intravenous con trast. COMPARISON: MR MR CERVICAL SPINE WO from 10/19/2020 FINDINGS: BONES: Vertebral body heights are maintained. Intervertebral disc spaces are normal. Alignment is nor mal. Note is again made of a hemangioma or fatty rest in C6. CERVICAL CORD: Craniovertebral junction is unremarkable. The cervical cord is normal size and signal intensity. SOFT TISSUES: Unremarkable. C2-3: No disc herniation or bulge is identified. There is facet hypertrophy again seen on the left ca using moderate left neural foraminal stenosis which appears stable. No significant central spinal ca nal or right neural foraminal stenosis is seen. C3-4: There is again seen a central disc herniation which appears unchanged in size and indents the a nterior spinal cord. There is normal signal in the spinal cord. Central spinal canal is within norm al limits in size. No significant neural foraminal stenosis is present. C4-5: No disc herniation or bulge is identified. No significant central spinal canal or neural forami nal stenosis C5-6: There is prominence of the osteophyte disc complex. No significant central spinal canal stenos is is seen. Moderately severe bilateral neural foraminal stenosis is again seen. C6-7: There is an eccentric disc bulge protruding laterally to the left again seen. There also appea r to be mild degenerative changes of the facets on the left. There is no significant central spinal canal stenosis. There is marked left neural foraminal stenosis. No significant right neural foramin al stenosis is seen. C7-T1: No disc herniation or bulge is identified. No significant central spinal canal or neural lois inal stenosis IMPRESSION: 1. Multilevel degenerative changes in the cervical spine as described above. 2. Overall, the findings appears stable compared to the prior examination. DATA REPOSITORY:
== END 2022-08-11 02:58 ==
LOC: DI 02:41
PROVIDERS: PCP Nurse Practitioner Family; Visit Provider Nurse Practitioner Family
DX: M47.812 Spondylosis without myelopathy or radiculopathy, cervical region (principal); M54.12 Radiculopathy, cervical region
CPT/HCPCS: 72141

== ENCOUNTER 2022-09-05 09:35 | Outpatient (CLI) | payer BC, SELFPAY ==
--- NOTE | 2022-09-05 09:15 | DI.RAD_ITS ---
Exam(s) XR PELVIS AP EXAM: XR PELVIS AP CLINICAL HISTORY: left hip pain. TECHNIQUE: 2D digital imaging was performed. One image was performed. COMPARISON: CR XR HIP LT COMPLETE AP PELVIS from 05/06/2022 FINDINGS: BONES: No acute fracture is present. No bony destructive lesion is seen. JOINTS: No dislocation present. There are marked degenerative changes again seen in the left hip with loss of the superior joint space, large subchondral cysts and subchondral sclerosis. In the right h ip, there is mild joint space narrowing present. SOFT TISSUE: Normal. IMPRESSION: Advanced degenerative changes in the left hip. DATA REPOSITORY: RADIATION DOSE DELIVERED:
== END 2022-09-05 09:36 | disposition home or self-care (01) ==
LOC: DIORS 09:36
PROVIDERS: PCP Nurse Practitioner Family; Referring Provider Nurse Practitioner Family; Visit Provider Physician Assistant
DX: M25.552 Pain in left hip (principal); M16.12 Unilateral primary osteoarthritis, left hip
CPT/HCPCS: 72170

== ENCOUNTER 2022-10-03 03:27 | Outpatient (CLI) | payer BC, SELFPAY ==
[2022-10-03 15:23] LABS: HCT 46.5 % (40.0-50.0); HGB 15.4 g/dL (13.5-17.5); MCH 29.4 pg (27.0-33.0); MCHC 33.1 % (32.0-36.0); MCV 89 fL (80-95); MPV 10.5 fL (8.0-11.0); Platelet Count 224 10^3/uL (130-400); RBC 5.23 10^6/uL (4.36-5.78); RDW 13.7 % (11.8-14.1); RDW-SD 44.8 fL; WBC 7.65 10^3/uL (4.4-10.8)
[2022-10-03 16:19] LABS: Anion Gap 10.3 mmol/L (3-11); BUN 28 mg/dL (7-18); CO2 25.7 mmol/L (21.0-32.0); CREATININE 1.2 mg/dL (0.70-1.30); Calcium 9.4 mg/dL (8.5-10.1); Chloride 105 mmol/L (98-107); Estimated GFR 67.11 (mL/min/1.73m2); Glucose 78 mg/dL (74-106); Potassium 3.8 mmol/L (3.5-5.1); Sodium 141 mmol/L (136-145)
== END 2022-10-03 03:28 | disposition home or self-care (01) ==
LOC: LBO 03:27
PROVIDERS: PCP Nurse Practitioner Family; Visit Provider Student in an Organized Health Care Education/Training Program
DX: M25.552 Pain in left hip (principal); M16.12 Unilateral primary osteoarthritis, left hip; Z01.818 Encounter for other preprocedural examination; Z01.812 Encounter for preprocedural laboratory examination
CPT/HCPCS: 36415; 80048; 85027

== ENCOUNTER 2022-10-12 05:57 | Day surgery (SDC) | payer BC, SELFPAY ==
[2022-10-12] VITALS (8 sets, daily range): BP systolic 92–152; BP diastolic 50–95; PULSE 45–70; RESP 14–20; TEMP 36.2–36.6; O2SAT 91–98; BMI 33.9
[2022-10-12] MEDS: Celecoxib 200 MG CAP 400 MG PO (06:29)
[2022-10-12] MEDS: Acetaminophen 500 MG TAB 1000 MG PO (06:30)
[2022-10-12] MEDS: Lactated Ringers 1,000 ML 80 ML IV (06:41)
--- NOTE | 2022-10-12 06:59 | W.ANESPRE ---
General Info Date of Service Date Performed: 10/12/22 Height: 5 ft 11 in Weight: 110.4 kg Body Mass Index (BMI): 33.9 Surgical Procedure: Operation Date: 10/12/22 07:50 Proposed Procedure Side Surgeon p Hip Total Hip Anterior, ACTIS (Sz. 6, High) Left Hussein Garcia MD Meds Allergies and Home Medications Allergies Allergy/AdvReac Type Severity Reaction Status Date / Time No Known Allergies Allergy Verified 10/12/22 06:10 Home Medication Medication Instructions Recorded atorvastatin 40 mg tablet 40 mg PO HS 10/07/21 losartan 50 mg tablet 50 mg PO HS 10/07/21 CBD See Rx Instructions PO HS Pain and 01/19/22 sleep meloxicam 15 mg tablet See Rx Instructions PO DAILY PRN 07/19/22 pain #30 tabs Raised toilet seat #1 ea 10/03/22 coenzyme Q10 200 mg capsule (Co 200 mg PO DAILY 10/12/22 Q-10) Current Visit Medications: Current Medications Generic Name Dose Route Start Last Admin Trade Name Rayq PRN Reason Stop Dose Admin Acetaminophen 1,000 mg 10/12/22 06:00 10/12/22 06:30 Acetaminophen 500 Mg Tab PO 10/12/22 18:00 1,000 mg PREOP SHANELLE Administration Celecoxib 400 mg 10/12/22 06:00 10/12/22 06:29 Celecoxib 200 Mg Cap PO 10/12/22 18:00 400 mg PREOP SHANELLE Administration Tranexamic Acid 1,000 mg/ 60 mls @ 360 mls/hr 10/12/22 06:00 Sodium Chloride IV 10/12/22 18:00 PREOP SHANELLE Ringer's Solution 1,000 mls @ 80 mls/hr 10/12/22 06:00 10/12/22 06:41 IV 11/10/22 23:59 80 mls/hr INFUSION SHANELLE Administration Cefazolin Sodium 3,000 mg/ 100 mls @ 200 mls/hr 10/12/22 06:00 Sodium Chloride IVPB 10/12/22 16:00 PREOP SHANELLE IV Miscellaneous Supplies 1 each 10/12/22 06:00 Iv Access IV 11/10/22 23:59 DIRECTED SHANELLE Sodium Chloride 0 ml 10/12/22 06:00 Normal Saline Flush 10 Ml Syr IV 11/10/22 23:59 PRN PRN Sodium Chloride 0 ml 10/12/22 06:00 Normal Saline 10 Ml Vial IJ 11/10/22 23:59 DIRECTED PRN Sterile Water 0 ml 10/12/22 06:00 Water,Injection,Sterile 10 Ml Vial IJ 11/10/22 23:59 DIRECTED PRN PFSH Active Problems Active Problems: Problem Status Onset Code Left rotator cuff tear M75.102 Right rotator cuff tear M75.101 Degenerative spondylolisthesis M43.10 Hip osteoarthritis M16.9 Labral tear of shoulder S43.439A Supraspinatus tendon tear M75.100 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 Central stenosis of spinal canal M48.00 Foraminal stenosis of lumbosacral region M48.07 DDD (degenerative disc disease), lumbar M51.36 Cervical radicular pain M54.12 Left shoulder pain M25.512 Myalgia M79.10 Cervical radiculopathy M54.12 Arm pain, left M79.602 Cervicalgia M54.2 Sciatica M54.30 Cervical paraspinal muscle spasm M62.838 Medical History Medical History Adenomatous colon polyp Hip pain, left Hyperlipidemia Hypertension Obesity Tobacco chew use Tubular adenoma of colon (01/06/17) Surgical History Surgical History Cholecystectomy Colonoscopy - IV Sedation (01/06/17) History of decompression of ulnar nerve (~2014) [facility] [place] Left Status post arthroscopic knee surgery over 20 years ago unsure which knee Tobacco Smoking/Tobacco Use Status: Current every day Tobacco Type: smokeless tobacco Smokeless tobacco user: chewing tobacco Alcohol Alcohol Intake: never Substance Use Substance use: Daily Details: CBD Gummies Vital Signs and Lab Results Vital Signs Most Recent Vital Signs in EMR: Most Recent Vital Signs Temp Pulse Resp BP Pulse Ox 36.6 C 70 16 152/95 H 98 10/12/22 06:12 10/12/22 06:12 10/12/22 06:12 10/12/22 06:12 10/12/22 06:12 Lab Results Blood Type / Crossmatch: No Data to Display Complete Blood Count: White Blood Count 7.65 10^3/uL (4.4-10.8) 10/03/22 15:10 Red Blood Count 5.23 10^6/uL (4.36-5.78) 10/03/22 15:10 Hemoglobin 15.4 g/dL (13.5-17.5) 10/03/22 15:10 Hematocrit 46.5 % (40.0-50.0) 10/03/22 15:10 Platelet Count 224 10^3/uL (130-400) 10/03/22 15:10 Complete Metabolic Panel: Sodium 141 mmol/L (136-145) 10/03/22 15:10 Potassium 3.8 mmol/L (3.5-5.1) 10/03/22 15:10 Chloride 105 mmol/L (98-107) 10/03/22 15:10 Carbon Dioxide 25.7 mmol/L (21.0-32.0) 10/03/22 15:10 BUN 28 mg/dL (7-18) H 10/03/22 15:10 Creatinine 1.2 mg/dL (0.70-1.30) 10/03/22 15:10 Est GFR (CKD-EPI 2020) 67.11 (mL/min/1.73m2) 10/03/22 15:10 Calcium 9.4 mg/dL (8.5-10.1) 10/03/22 15:10 Glucose 78 mg/dL (74-106) 10/03/22 15:10 Liver Function Panel: No Data to Display Coagulation Panel: No Data to Display Cardiac Panel: No Data to Display Arterial Blood Gas: No Data to Display Venous Blood Gas: No Data to Display Pancreas Panel: No Data to Display Thyroid Panel: No Data to Display Infectious Disease: No Data to Display Blood Cultures: No Data to Display Toxicology Panel: No Data to Display Anesthesia Assessment and Plan Anesthesia History Personal History: No History of Anesthesia Complications Family History: No Family History of Anesthesia Complications Exercise Tolerance Exercise Tolerance: Metabolic Equivalents>4 Pertinent Negatives Pertinent Negatives: No Symptoms of GERD, No Major Cardiovascular Symptoms or Complaints, No Major Pulmonary Symptoms or Complaints and No History of CVA/TIA Cardiac & Pulmonary Exam Cardiac Exam: Normal S1/S2 Heart Sounds Pulmonary Exam: Clear Bilateral Breath Sounds Implantable Cardiac Device Does patient have a Pacemaker or an ICD?: No Airway Exam Known Difficult Airway: No Mallampati Class: 2 Mouth Opening: Normal (> 3cm) Thyromental Distance: Greater than 3 cm Neck Range of Motion: Full ROM Neck Circumference: Normal Teeth Condition: Normal Dentition ASA Classification ASA Score: ASA 2 Emergency Case?: No NPO Status NPO Status: NPO Clears >2 hours, Solids >8 hours Anesthesia Plan Resuscitation Status: Full Code Anesthesia Technique: Spinal Anesthesia Airway Planned: Natural Airway Monitors Used: Standard Monitors Preoperative Comments:: Last chewing tobacco last night at 1999.
--- NOTE | 2022-10-12 07:36 | PDOC.DSDIS_ITS ---
Date of service: 10/12/22 Time of Service: 07:37 Discharge Plan Disposition Patient Disposition: Home Condition: Good Discharge Details Reason For Visit: L COLE Attending Provider: Hussein Garcia Primary Care Provider: Yanna Leyva Home Meds and New Rx's Prescriptions: New celecoxib 200 mg capsule 200 mg PO BID Qty: 60 0RF aspirin 81 mg tablet,delayed release (DR/EC) 81 mg PO BID Qty: 60 0RF acetaminophen 500 mg tablet 1,000 mg PO TID Qty: 90 3RF pantoprazole 40 mg tablet,delayed release (DR/EC) 40 mg PO DAILY Qty: 30 0RF dexamethasone 4 mg tablet 4 mg PO DAILY Qty: 2 0RF oxycodone 5 mg tablet 5 mg PO Q4H MDD 6 tabs PRN (Reason: pain) Qty: 20 0RF Continued (DME) Raised toilet seat See Rx Instructions .Route .MEDSUPPLY Qty: 1 0RF Rx Instructions: As directed CBD See Rx Instructions PO HS Rx Instructions: 25-50 mg orally bedtime; coenzyme Q10 [Co Q-10] 200 mg Capsule 200 mg PO DAILY losartan 50 mg Tablet 50 mg PO HS atorvastatin 40 mg Tablet 40 mg PO HS Discontinued meloxicam 15 mg tablet See Rx Instructions PO DAILY PRN (Reason: pain) Qty: 30 2RF Rx Instructions: 1/2 - 1 tab PO daily PRN; Discharge Instructions Additional Instructions: Total Hip Discharge Instructions Activity: The most important activity is to walk. You should try to take short walks a few times a day. You have no restrictions on movement or positioning, but do not try to force what you do. You will find some stiffness and weakness with hip flexion (lifting your knee). Do not try to strengthen this too early, continue to practice walking and stairs and this will come. - Outpatient physical therapy can be helpful to help return you to a normal gait and improve your flexibility and strength. This can start around 2 weeks. For some patients, it?s not necessary. Usually this is determined at the time of discharge or at the first post-operative visit. - You should wear the JERRY hose on both legs for 2 weeks. Dressing: Keep the surgical dressing in place for at least one week. After the first week it may be removed and replace with light gauze and tape or nothing. It may get wet after 3 days but avoid soaking the dressing. If it gets wet, just lightly pat dry. It is important to always keep some gauze between skin folds, especially when you are sitting. Spend some time with the wound exposed when you are lying flat as the incision does wrinkle onto itself. Medications: - You should take Tylenol and an anti-inflammatory Celebrex as your primary pain control medications. If the Celebrex is too expensive or not covered, please call the office for another alternative (Advil/Ibuprofen or Naproxen/Aleve). - You have been prescribed a stronger pain medication Oxycodone for breakthrough pain, take as needed as prescribed. - You have also been prescribed a stomach acid reduction agent Pantoprozole to help reduce stomach acid and reflux. - You have also been prescribed Decadron to help with post-operative nausea and pain. You will take this for two days starting tomorrow. - You will be taking [Aspirin 81mg twice a day] for DVT prevention unless instructed otherwise. - If you have constipation you should take Colace or Miralax (both [id number]). It takes most people 3-4 days to have a bowel movement. Follow-up: 2 weeks If you have any acute concerns or questions, please do not hesitate to contact the office at [phone]. You may contact Dr. Garcia with any questions after hours through the hospital at [phone] or on his cell phone at [phone]. Referrals: Hussein Garcia MD [ [facility] STAFF PHYSICIAN] - 10/27/22 10:45 am Equipment/Supplies: Walker Activity:: Activity as Tolerated Shower/Bathe:: 72 hours and Cover Diet:: As Tolerated Discharge Orders Discharge Orders: Discharge Order (Routine); Ordered 10/12/22 Ordered By: Hussein Garcia DS: Diagnosis Discharge Diagnosis (1) Hip osteoarthritis: Status: Acute
[2022-10-12] MEDS: ceFAZolin 3,000 MG in Normal Saline 100 ML 200 MG IVPB (07:41)
--- NOTE | 2022-10-12 09:02 | DI.RAD_ITS ---
Exam(s) XR HIP LT IN OR EXAM: XR HIP LT IN OR CLINICAL HISTORY: left hip OA TECHNIQUE: 2D and realtime digital imaging was performed. CONTRAST MATERIAL: Refer to procedure report. COMPARISON: CR XR PELVIS AP from 09/05/2022 FINDINGS: Fluoroscopy was provided for Dr. Garcia during the performance of a placement of a total hip arthr oplasty. Please refer to the procedure report for complete details. Ka,r=4.92 mGy IMPRESSION: RADIATION DOSE DELIVERED:
--- NOTE | 2022-10-12 11:49 | W.ANESPOSTOP ---
Postoperative Evaluation Date, Time and Location Date Performed: 10/12/22 Time Performed: 10:45 Patient Location: Day Surgery Unit Vital Signs Most Recent Imported Vital Signs: Most Recent Vital Signs Temp Pulse Resp BP Pulse Ox 36.4 C L 50 L 16 140/86 97 10/12/22 10:29 10/12/22 10:29 10/12/22 10:29 10/12/22 10:29 10/12/22 10:29 Pain Score Most Recent Pain Score: Most Recent Pain Score Pain Level 0 10/12/22 10:29 Assessment Mental Status: Awake (Alert & Oriented to Patient Baseline) Airway and Respiratory Function: Patent airway with normal (patient baseline) respiratory exam Cardiovascular Function: Hemodynamically Stable Hydration Status: Adequately Hydrated Nausea & Vomiting: No Nausea or Vomiting Pain: Pain is tolerable per patient Peripheral Nerve Block: Patient did not receive a nerve block
--- NOTE | 2022-10-12 13:38 | IN_ITS ---
Date of service: 10/12/22 Time of Service: 11:19 PT Notes Visit Reasons: L COLE Physical Therapy Day Surgery Initial Evaluation Date: 10/12/2022 Referring Doctor: SABINO Shoemaker PT Orders: PT CONSULT: Eval/Treat Precautions: WBAT on L LE with AD. Patient Profile/Admitting Diagnosis: Vishnu is a 66-year-old male patient with degenerative joint disease of the left hip and is status post left total hip arthroplasty on postoperative day 0. PMHX: Medical History?(Updated 10/03/22 @ 14:28 by Alexia Mckeon) Adenomatous colon polyp Hip pain, left Hyperlipidemia Hypertension Obesity Tobacco chew use Tubular adenoma of colon (01/06/17) Surgical History?(Updated 10/03/22 @ 14:28 by Alexia Mckeon) Cholecystectomy Colonoscopy - IV Sedation (01/06/17) History of decompression of ulnar nerve (~2014) [facility] [place] LeftStatus post arthroscopic knee surgery over 20 years ago unsure which knee Social History/Home Situation: Lives with in a private home with 3 steps to enter with rails on both sides. ADLs prior to surgery. We will have the support of his 2 daughters as he recovers while works during the day. Equipment Owned/DME: None Subjective: Reports of 1-2/10 pain in the left hip with weight bearing. Denies headache, chest pain, and his lightheadedness throughout session. Objective: General Observation: Seated on bedside chair. Mepilex Ag over surgical incision. TEDs to B legs. Mental Status: Alert and oriented x4 Pain: 1?2/10 pain in the left hip ROM: Right Lower Extremity: Hip flexion WFL. Hip abduction WFL. Knee flexion WFL. Ankle dorsiflexion WFL. Ankle plantarflexion WFL. Left Lower Extremity: Hip flexion WFL. Hip abduction WFL. Knee flexion WFL. Ankle dorsiflexion WFL. Ankle plantarflexion WFL. Strength: Right Lower Extremity: Hip flexors 5/5. Hip abductors 5/5. Knee flexors 5/5. Knee extensors 5/5. Ankle dorsiflexors 5/5. Ankle plantarflexors 5/5. Left Lower Extremity:Hip flexors 4/5. Hip abductors 4/5. Knee flexors 4/5. Knee extensors 4/5. Ankle dorsiflexors 5/5. Ankle plantarflexors 5/5. Sensation: And light touch in bilateral lower extremities Bed Mobility/Transfers: Sit to stand supervision Stand to sit supervision Bed to chair supervision Gait: 150 feet using front wheeled walker with step through gait pattern requiring standby assist. No LOB. No SOB. Good quad activation. Denies headache, chest pain, and lightheadedness throughout Stairs: Negotiated 6 x 4 inch steps and 4 x 6 inch steps while holding onto bilateral rails with step to gait pattern requiring standby assist with no report of increased pain. Balance: Static Sitting: Normal Dynamic Sitting: Normal Static Standing: Fair Dynamic Standing: Fair Special Tests: Mobility Limitations Standardized Measure [facility] AM-PAC 6 clicks Basic Mobility Inpatient Short Form: Raw Score: 23 CMS Score: 11% deficit Informed Consent/Education: Patient instructed in purpose of PT consult. Packet containing COLE exercise protocol has been given to patient. Education and training on initial set of exercises that can be done at home have been completed with patient and patient's . Assessment: Vishnu requires the use of a front wheeled walker to maximize independence, reduce pain, and reduce fall risk Patient presents with clinical signs and symptoms consistent with current/admitting diagnoses that have resulted to mobility limitations, gait instability, generalized weakness, and impairment of motor control as demonstrated by the following impairment level findings: 1. Decreased strength to left hip major muscle groups 2. Impaired standing balance Impairments are contributing to the following functional limitations: 1. Inability to safely ambulate without assistive device 2. Increase completion time for mobility ADL performance 3. Increased fall risk Patient is assessed as a [id number] moderate complexity based on the following: History: 66-year-old male with impairment level findings, functional limitations, and past medical history as indicated above Examination: Demonstrable impairment in strength, balance, and mobility level with underlying impairments and functional limitations as documented above Presentation: Evolving Decision Makin moderate complexity Goals: N/A. PT evaluation and 1-2 treatment sessions only for functional mobility training using recommended AD and for HEP instruction. Plan of Care/Treatment Plan: N/A. PT evaluation and 1-2 treatment session only for functional mobility training using recommended AD and for HEP instruction. DISCHARGE RECOMMENDATIONS: Home when medically cleared by orthopedic surgeon. Recommend outpatient PT services in order to optimize functional mobility outcomes and facilitate return to independent community ambulation without an assistive device TREATMENT CODE/TIME: 19848 x 18 minutes beginning at 11:19 AM. Thank you for the opportunity to participate in the care of this patient. Kristen Zhu PT, DPT, CLT [facility] [place], [place] Thank you for the opportunity to participate in the care of this patient.
--- NOTE | 2022-10-13 17:04 | W.PM.OP ---
Date of service: 10/12/22 Time of Service: 09:30 Operative Note Operative Note DATE OF PROCEDURE: 10/12/22 PRE-OP DIAGNOSIS: Left Hip Osteoarthritis POST-OP DIAGNOSIS: same PROCEDURE: Left Anterior Total Hip Arthroplasty with Intraoperative Navigation SURGEON: Hussein Garcia ADMITTING OFFICER: Karl Das ANESTHESIA TYPE: Spinal Refer to Anesthesia Record ESTIMATED BLOOD LOSS: 200 PATHOLOGY: none sent TOURNIQUET TIME: 0 COMPLICATIONS: None Patient was transported to: PACU Patient's condition: stable Implants: 1. Depuy [place] Acetabular Component, 58mm 2. Depuy Acetabular Liner, 10v30ft 3. Depuy Actis Standard Collared Femoral Stem, Size 7 4. Depuy Altrx Ceramic Femoral Head, Size 36+5mm Indications: I have seen Vishnu in clinic for symptoms of hip arthritis, confirmed with radiographic findings. He has exhausted nonoperative methods and was having significant limitations in daily function and desired better function and less pain. I discussed the technical details of a hip replacement. I explained the risks of the procedure to include, but not limited to, bleeding, infection, pain, stiffness, fracture, damage to nerves and vessels, damage to muscles and tendons, loosening, instability, leg length inequality, need for repeat procedure, blood clot and cardiopulmonary demise. Despite these risks, Vishnu elected to proceed. Findings: There was significant signs of arthritis throughout the hip with large osteophytes and deformity of the femoral head. Procedure Description: Vishnu was greeted in the preoperative holding area where the correct side was identified and marked. The consent was reviewed with the patient and signed. The history and physical was updated. All questions were answered. He was taken back to the operating room. A spinal anesthestic was then administered. The feet were wrapped with cast padding and Coban and then placed into the boot liners and then into the boots. Care was taken to protect the skin and make sure the heels were fully down and the boots were stable. The patient was then positioned onto the HANA table. Both legs were held in a neutral position. SCDs were applied. The patient was then slid down onto a peroneal post. Prophylactic antibiotics in the form of Cefazolin were administered. 1g of Tranxemic Acid was given intravenously within 30 minutes of incision. The left leg was then prepped with Chloraprep and draped in a standard fashion. A second prep with Chloraprep was performed prior to placement of a shower-curtain type drape with Iodine impregnated skin protection. A timeout to confirm correct identity, side and site, procedure, allergies, anesthesia, and medical concerns was performed. An obliquely oriented incision was made starting lateral to the ASIS and running distal over the Tensor Fascia Elle (TFL) muscle belly toward the fibular head, approximately 10cm. The skin and soft tissue was dissected sharply, through Igor?s fascia, and to the fascia of the TFL. With the fascia and superior border of the IT band identified, the fascia was incised with a new knife just above any perforators from the IT band. The TFL muscle belly was bluntly dissected away from the fascia and moved laterally. The fat between TFL and rectus was identified to ensure the dissection was not within the TFL. Blunt dissection created space between abductors and the capsule and retractor was placed over the lateral femoral neck. The fibers of the rectus femoris tendon were identified and these were freed from the anterior capsule. A second cobra retractor was placed around the medial femoral neck. The TFL was further retracted laterally to show the deep fascia. Careful dissection through this layer identified three main crossing vessels of the lateral femoral circumflex. These were cauterized in multiple locations and then cut without any noticeable bleeding. The TFL was further released bluntly from the deep fascia to expose anterior hip capsule and fat The [place]mar orthopaedic retractor was then placed beneath the TFL and against sartorius and medial soft tissues to protect and retract the soft tissues. A T-capsulotomy was then performed starting at the superior lateral acetabulum and moving distally to the intertrochanteric ridge. These capsular flaps were tagged with a No. 1 Ethibond and elevated from within. The capsular flaps were released to the shoulder of the lateral neck and to the lesser trochanter to give excellent visualization of the proximal femur. A neck osteotomy was performed using an oscillating saw based on preoperative templates. This cut started in the shoulder and of the lateral neck and exited medially. The saw was at all times directed medially to avoid injury to the greater trochanter. Gross traction was applied to the leg and the osteotomy opened. The femoral head was removed with a corkscrew, making sure to protect the TFL on its exit. Traction was released after head removal. This was measured on the back table to determine the starting reamer size. Portions of the rectus obscuring visualization were minimally elevated off the superior acetabulum. An anterior retractor was placed over the anterior wall between capsule and labrum and attached to the Gripper retraction system. The femur was rotated to 90 degrees and medial capsule was fully released until the lesser trochanter was palpable and visible; the femur was returned to 30 degrees. A posterior retractor was placed similarly between capsule and labrum. This provided excellent visualization. The contents of the cotyloid fossa were removed with electrocautery and the labrum was removed with a knife. There was a notable floor osteophyte. There was significant chondromalacia of the superior acetabulum. Acetabular reaming began with a 54mm reamer. This first reaming was directed anterior to posterior and medial to get down to the true floor. This was inspected and reamed until the true floor was reached. The anterior retractor was then released and entry and exit was provided by traction on the capsular flaps. I then reamed sequentially up to a 58mm reamer where good fit was obtained. The larger reamers were oriented based on anatomical reference of the anterior and lateral martinez to ensure proper abduction and anteversion. Positioning and size was confirmed with the fluoroscopy. A 58mm Depuy [place] acetabular component was selected. The acetabulum was reamed around the periphery with the selected acetabular size to prevent a rim fit. The deep tissues were irrigated. The acetabular component was then impacted in a position of about 40-45 degrees of abduction and 15-20 degrees of anteversion, using the patient?s anatomy as the ultimate landmark. Fluoroscopy was used to confirm this. There was excellent frog or oyster farmworker of the acetabular component and the inserting handle was removed. The acetabular liner, Depuy [id number] polyethylene liner, was inserted and lined up with the tines of the acetabular component. There was no soft tissue interposition. The liner was then impacted into position and confirmed to be well-seated. A portion of the tram-articular cocktail was then injected around the acetabulum into the capsule and periosteum. This cocktail consisted of 123mg of Ropivacaine, 0.25mg of Epinephrine, 0.04mg of Clonidine, and 15mg of Ketorolac, diluted to 50cc. The leg was rotated to 120 degrees. Any remaining medial capsule was released until the lesser trochanter was easily palpable. A retractor was placed medially. The lateral capsule was further released into the shoulder to allow access to the greater trochanter. A Patel retractor was placed over the greater trochanter which allowed the trochanter to flip in front of the capsule for excellent exposure. The leg was brought down into maximal extension and 20 degrees of adduction while ensuring there was no impingement on the acetabulum. Any remnant capsule within the trochanter was released. Piriformis and obturator externis were identified and protected. There was excellent access to the proximal femur. The lateral neck remnant was removed with a rongeur. A blunt canal probe was used to identify the canal and trajectory for later broaching. A box osteotome initiated the broach course. A small curved rasp and a curved curette were used to work laterally. Broaching then began with a size 0 Actisl broach. This was inserted manually around the trochanter and into the canal before mallet blows. The broach was seated to the neck cut level based on the neck cut and the preoperative template. Sequential broaching was continued with the Vis[employer] pneumatic broaching device until a tight fit was obtained with good rotational control of the femur. A trial standard neck was inserted along with a +5 trial head. The leg was brought out of extension and adduction and then reduced with traction and internal rotation. The leg was stable anteriorly in a position of 30 degrees of extension and 90 degrees of external rotation. Fluoroscopy was used to ensure there was no fracture and the stem was seated well. Leg lengths were checked with an AP pelvis and pelvic reference points. Glowforth navigation system was used to confirm appropriate positioning and leg length and offset. Once content with the desired offset and leg lengths, the leg was brought back into extension, external rotation and adduction. The periosteum and surrounding tissue was injected with remaining portion of the tram-articular cocktail. The proximal femur was irrigated as well as the deep tissues. The idealista.comuy [employer] Standard collared stem, size 7, was then manually inserted into the proximal femur making sure to control rotation. It was then malleted into position with light blows, giving breaks to allow bone expansion and decrease risk of fracture. The selected Depuy Altrx Ceramic Head, size 36+5mm, was then placed onto the clean and dry trunnion and secured with impaction onto the tapered fit. The leg was brought back out of extension and adduction and reduced with traction and internal rotation. Stability was confirmed with no shuck at 90 degrees of external rotation and 30 degrees of extension. No impingement through range of motion arc. Final x-ray images were obtained with fluoroscopy to confirm adequate positioning and no intraoperative fracture. The deep tissues were thoroughly irrigated with Surgiphor, betadine solution. This was allowed to sit in the wound for 3 minutes before being thoroughly irrigated out with normal saline. The capsule was then reapproximated with the previously placed Ethibond sutures. The TFL fascia was finally closed with a No. 2 Stratafix, barbed suture. Deep tissues were then reapproximated with 0 Vicryl and a running 2-0 Vicryl. The skin was closed with a running 4-0 Monocryl in a subcuticular fashion. This was reinforced with skin glue. A Mepilex silver dressing was applied. At the end of the case, all counts were correct. Vishnu was transferred to the hospital bed without difficulty and suffering no apparent complication. Vishnu has a good prognosis. Physical therapy will start today and without restrictions, weight-bearing as tolerated. Aspirin 81mg BID will be used for DVT prophylaxis.
== END 2022-10-12 12:09 | disposition home or self-care (01) ==
PROVIDERS: PCP Nurse Practitioner Family; Visit Provider Student in an Organized Health Care Education/Training Program
PROC: (CPT 27130; principal; 2022-10-12 07:30)
DX: M16.12 Unilateral primary osteoarthritis, left hip (principal); I10 Essential (primary) hypertension; E78.5 Hyperlipidemia, unspecified; E66.9 Obesity, unspecified; Z68.33 Body mass index [BMI] 33.0-33.9, adult; F17.220 Nicotine dependence, chewing tobacco, uncomplicated
CPT/HCPCS: 27130; 20985; 97162; 73501; J0690; J1100; J2250; J2405

== ENCOUNTER 2022-10-27 11:52 | Outpatient (CLI) | payer BC, SELFPAY ==
--- NOTE | 2022-10-27 10:15 | DI.RAD_ITS ---
Exam(s) XR HIP LT COMPLETE AP PELVIS EXAM: XR HIP LT COMPLETE AP PELVIS INDICATION: 1ST POST OP S/P L COLE. COMPARISON: CR XR PELVIS AP from 09/05/2022 XA XR HIP LT IN OR from 10/12/2022 TECHNIQUE: 2D digital imaging was performed. Two views. FINDINGS: Left hip prosthesis show satisfactory alignment. There are no suspicious surrounding bony lucencies. The right hip shows mild degenerative changes. DATA REPOSITORY: RADIATION DOSE DELIVERED:
== END 2022-10-27 11:53 | disposition home or self-care (01) ==
LOC: DIORS 11:52
PROVIDERS: PCP Nurse Practitioner Family; Referring Provider Nurse Practitioner Family; Visit Provider Student in an Organized Health Care Education/Training Program
DX: Z96.642 Presence of left artificial hip joint (principal); Z47.1 Aftercare following joint replacement surgery
CPT/HCPCS: 73502

== ENCOUNTER 2023-01-24 18:51 | Outpatient (REF) | payer BC, SELFPAY ==
[2023-01-24 20:00] LABS: ALT 33 U/L (16-63); AST 24 U/L (15-37); Albumin 3.6 g/dL (3.4-5.0); Alkaline Phosphatase 103 U/L (46-116); Anion Gap 11.7 mmol/L (3-11); BUN 27 mg/dL (7-18); Bilirubin, Total 0.7 mg/dL (0.2-1.0); CO2 24.3 mmol/L (21.0-32.0); CREATININE 1.3 mg/dL (0.70-1.30); Calcium 8.9 mg/dL (8.5-10.1); Calculated LDL 88 mg/dL (<100); Chloride 103 mmol/L (98-107); Cholesterol 152 mg/dL (<200); Estimated GFR 60.59 (mL/min/1.73m2); Glucose 96 mg/dL (74-106); HDL Cholesterol 50 mg/dL (40-60); Potassium 3.8 mmol/L (3.5-5.1); Sodium 139 mmol/L (136-145); Total Protein 7.4 g/dL (6.4-8.2); Triglyceride 70 mg/dL (<150)
== END 2023-01-24 18:52 | disposition home or self-care (01) ==
LOC: NCHCN 18:51
PROVIDERS: PCP Nurse Practitioner Family; Visit Provider Nurse Practitioner Family
DX: E78.5 Hyperlipidemia, unspecified (principal); I10 Essential (primary) hypertension; Z86.010 Personal history of colon polyps; F17.220 Nicotine dependence, chewing tobacco, uncomplicated
CPT/HCPCS: 80053; 80061

== ENCOUNTER 2023-01-26 12:15 | Day surgery (SDC) | payer OTHER, SELFPAY ==
--- NOTE | 2023-01-26 07:21 | W.PM.DSUDISC ---
Date of service: 01/26/23 Time of Service: 18:00 Discharge Plan Disposition Patient Disposition: Home Discharge Details Attending Provider: Gilberto Sullivan Primary Care Provider: Yanna Leyva Home Meds and New Rx's Prescriptions: Continued CBD See Rx Instructions PO HS Rx Instructions: 25-50 mg orally bedtime; coenzyme Q10 [Co Q-10] 200 mg Capsule 200 mg PO DAILY acetaminophen 500 mg tablet 1,000 mg PO TID Qty: 90 3RF losartan 50 mg Tablet 50 mg PO HS atorvastatin 40 mg Tablet 40 mg PO HS Discharge Orders Discharge Orders: Discharge Order (Routine); Ordered 01/26/23 Ordered By: Gilberto Sullivan DS: Diagnosis Discharge Diagnosis (1) Left rotator cuff tear: Status: Acute (2) Bursitis of left shoulder: Status: Acute (3) SLAP lesion of left shoulder: Status: Acute
--- NOTE | 2023-01-26 07:21 | W.PM.OP ---
Operative Note Operative Note Refer to Anesthesia Record
[2023-01-26 12:26] VITALS: BP 148/96; PULSE 66; RESP 18; TEMP 36.4; O2SAT 96
--- NOTE | 2023-01-26 14:13 | NUR.NOTE ---
Nursing Note: diversity manager canceled pt's case due to timeline issues. Pt and understood reasoning. Staff Will reschedule pt next week for Left shoulder. Gave sling to pt to bring back next week. Escorted pt JAZZMINE all belongings with him.
== END 2023-01-26 12:16 | disposition home or self-care (01) ==
LOC: SUR 12:15
PROVIDERS: PCP Nurse Practitioner Family; Visit Provider Student in an Organized Health Care Education/Training Program
DX: Z53.8 Procedure and treatment not carried out for other reasons (principal)

== ENCOUNTER 2023-02-02 09:43 | Day surgery (SDC) | payer OTHER, SELFPAY ==
[2023-02-02] VITALS (9 sets, daily range): BP systolic 117–154; BP diastolic 71–100; PULSE 48–72; RESP 13–21; TEMP 35.8–36.5; O2SAT 95–98; BMI 34.4
--- NOTE | 2023-02-02 07:26 | W.PM.DSUDISC ---
Date of service: 02/02/23 Time of Service: 15:30 Discharge Plan Disposition Patient Disposition: Home Discharge Details Reason For Visit: RCT,LHB TENDINOP,BURSITIS IMPINGEMENT Attending Provider: Gilberto Sullivan Primary Care Provider: Yanna Leyva Home Meds and New Rx's Prescriptions: New aspirin 81 mg tablet,delayed release (DR/EC) 81 mg PO DAILY 7 Days Qty: 7 0RF naproxen 250 mg tablet 250 - 500 mg PO BID PRNQty: 40 0RF Rx Instructions: take with a meal oxycodone 5 mg tablet 5 - 10 mg PO Q4H MDD 30 mg PRN (Reason: moderate to severe pain) Qty: 18 0RF Continued CBD See Rx Instructions PO HS Rx Instructions: 25-50 mg orally bedtime; coenzyme Q10 [Co Q-10] 200 mg Capsule 200 mg PO DAILY acetaminophen 500 mg tablet 1,000 mg PO TID Qty: 90 3RF losartan 50 mg Tablet 50 mg PO HS atorvastatin 40 mg Tablet 40 mg PO HS Discharge Instructions Additional Instructions: Surgery: Left shoulder arthroscopy with rotator cuff repair (supraspinatus), biceps tenodesis, extensive debridement, and subacromial decompression. Activity: For 6 weeks, you should keep your arm at your side in a neutral position at all times except for physical therapy. Do not try to lift or raise your arm using your own muscles. You should use the sling whenever you are out of the house. You may have to adjust the abduction pillow or remove it for comfort. At home it is best to remove the sling and rest the arm on a pillow at your side or support the operative side with your other hand. You may allow the arm to dangle at your side. A physical therapy prescription will be sent electronically to begin in about 3 weeks. Prescriptions: Aspirin 81 mg take 1 daily to prevent a blood clot for 7 days Naproxen 250 mg take 1-2 every 12 hours with a meal as needed for moderate pain Oxycodone 5 mg take 1-2 every 4-6 hours as needed for severe pain You may use [id number] Tylenol (acetaminophen) as needed for mild pain. These pain medications may be taken all at once or in different combinations as needed. Also, recommend Colace (docusate) as a stool softener as surgery and pain medicine cause constipation. You may try [id number] diphenhydramine (Benadryl) 25-50 mg nightly as a sleep aid Dressings: Remove shoulder bandage after 3 days. Leave the sticky Steri-Strips in place until they fall off or remove them after you shower. Cover the incisions with Band-Aids or leave them open to air. You may shower after 5 days. Follow-up: 10-[address] Sullivan You may take off the leg compression stockings this evening at home. You may also leave them on a few days longer if you have a history of leg swelling or edema. Let us know right away if you develop any redness, drainage, fevers, chest pain, or trouble breathing. Do not drink alcohol or drive for at least 24 hours after anesthesia. Please call the office during business hours with any questions or concerns. Discharge Orders Discharge Orders: Discharge Order (Routine); Ordered 02/02/23 Ordered By: Gilberto Sullivan DS: Diagnosis Discharge Diagnosis (1) Left rotator cuff tear: Status: Acute (2) SLAP lesion of left shoulder: Status: Acute (3) Bursitis of left shoulder: Status: Acute
--- NOTE | 2023-02-02 07:35 | ROE_ITS ---
Date of service: 02/02/23 Time of Service: 13:30 Operative Note Operative Note DATE OF PROCEDURE: 02/02/23 PRE-OP DIAGNOSIS: Left: 1. Rotator cuff tear 2. SLAP tear 3. Bursitis POST-OP DIAGNOSIS: same PROCEDURE: Left: 1. Rotator cuff repair, CPT# 67653. This involved repair of the supraspinatus using anchors and sutures to reattach the rotator cuff back to the footprint of the greater tuberosity. 2. Arthroscopic biceps tenodesis, CPT# 39473. This involved arthroscopically suturing and reattaching the long head of the biceps tendon to the proximal humerus at the superior margin of the bicipital groove with a screw at the correct tension. 3. Extensive debridement, CPT# 59707. This involved using arthroscopic hand instruments, power instruments, and radiofrequency instruments to release the long head of the biceps tendon, release M GH L, debride rotator interval synovitis, resect loose cartilage flaps and debride chondromalacia about the central humeral head, and debride mild anterior labral fraying tearing 4. Subacromial decompression with partial acromioplasty, CPT# 56183. This involved using arthroscopic power instruments and a radiofrequency wand to complete a bursectomy and smooth the undersurface of the acromion. The assistant manager bilingual was medically required in order to help assist in techniques above, which require positioning the arm, holding the arthroscope, and ma nipulating multiple instruments and sutures at the same time. This cannot be done without the help of an experienced assistant manager bilingual. SURGEON: Gilberto Sullivan INFECTIOUS DISEASES PHYSICIAN: Markos Kwan ANESTHESIA TYPE: Local By Surgeon and General LMA/ETT Refer to Anesthesia Record ESTIMATED BLOOD LOSS: 10 PATHOLOGY: none sent COMPLICATIONS: None Patient was transported to: PACU Patient's condition: stable Implants: Arthrex: 4.75mm SwiveLocks x 2 Indications: The patient was diagnosed with the above conditions and appropriately indicated for surgical intervention. Please see complete medical record for details. Findings: Exam under anesthesia: Full range of motion, no instability Glenohumeral joint: Chronic?appearing SLAP tear unstable biceps anchor. Moderate biceps tendon injection bicipital groove. Intact subscapularis. Minimal articular supraspinatus fraying largely otherwise intact. Central about 5 x 5 focal humeral head moderate thickness cartilage lesion with unstable cartilage flaps. Subacromial space: Moderate bursitis. No significant undersurface acromial bone spurring. Moderately sized and moderate thickness bursal chronic?appearing supraspinatus rotator cuff tear and deficient tissue. Significant thinning and longitudinal intrasubstance degeneration over the lateral footprint. Procedure Description: In the operating room, general anesthesia was induced. Bilateral shoulders were examined. The patient was positioned in the beachchair position. All bony prominences were well-padded. Preoperative antibiotics were administered. The shoulder was prepped and draped in the usual sterile fashion. The correct patient, procedure, and side of the procedure were all verified prior to incision. Starting through the posterior portal a standard complete diagnostic arthroscopy was performed of the glenohumeral joint including inspection of the long head of the biceps, anterior and superior labrum, subscapularis tendon, supraspinatus and infraspinatus tendons, and axillary recess. The glenoid and humeral head cartilage as well as the posterior labrum were inspected from an anterior viewing portal. Significant findings and interventions noted above. An all-arthroscopic suprapectoral biceps tenodesis was performed through an anterior portal using a Loop N Tack method with a SutureTape FiberLink cinched around and through the tendon. The biceps was tenotomized from the labrum and fixated with a suture anchor at the superior margin of the bicipital groove. Starting through the posterior portal, the arthroscope was directed into the subacromial space. A lateral 50 yard line lateral portal was created. A combination of power instruments and a radiofrequency ablator were used to debride bursitis anteriorly, posteriorly, and laterally as well as expose and smooth bone spurring on the undersurface of the acromion. The coracoid ligament was only mildly released. The bursectomy was completed viewing laterally and working from posteriorly and the rotator cuff was thoroughly inspected with findings noted above. The supraspinatus tear was thoroughly inspected. Given the footprint involvement decision was made to proceed with speed?fix type repair over side?to side suture?only repair. A liberator was used to elevate the tendon from far lateral only as much as necessary to insert hand and power tools under the cuff to debride tendon chronically torn tissue lightly as well as prepare the tuberosity for bone tendon healing. The cuff grasper was used to establish tear margins. The self retrieving suture passer was then used to shuttle a FiberTape inverted horizontal mattress stitch with a suture tape FiberLink centrally in ripstop configuration. All 3 repair suture ends were then secured to a single lateral suture anchor taking care to ensure appropriate tension on the repair. The repair was stable through range of motion and testing. The shoulder was drained of arthroscopic fluid. All portal sites were copiously irrigated. These incisions were closed using 3-0 Monocryl in a buried fashion and then covered with Mastisol, Steri-Strips, Xeroform, dry gauze, and ABDs. The dressings were covered and secured with Medipore tape. The operative extremity was placed into a sling for immobilization. The patient awoke from anesthesia without complication and was transferred to the recovery room in a stable condition.
[2023-02-02] MEDS: Lactated Ringers 1,000 ML 30 ML IV (11:05)
--- NOTE | 2023-02-02 11:20 | ANES.PREOP_ITS ---
General Info Date of Service Date Performed: 02/02/23 Height: 5 ft 11 in Weight: 111.9 kg Body Mass Index (BMI): 34.4 Surgical Procedure: Operation Date: 02/02/23 12:10 Proposed Procedure Side Surgeon p Shoulder Rotator Cuff Arthroscopic, extensive debridement, tenodesis, subacromial decompression Left Gilberto Sullivan MD Meds Allergies and Home Medications Allergies Allergy/AdvReac Type Severity Reaction Status Date / Time No Known Allergies Allergy Verified 02/02/23 10:28 Home Medication Medication Instructions Recorded atorvastatin 40 mg tablet 40 mg PO HS 10/07/21 losartan 50 mg tablet 50 mg PO HS 10/07/21 CBD See Rx Instructions PO HS Pain and 01/19/22 sleep acetaminophen 500 mg tablet 1,000 mg PO TID #90 tabs 10/12/22 coenzyme Q10 200 mg capsule (Co 200 mg PO DAILY 10/12/22 Q-10) Current Visit Medications: Current Medications Generic Name Dose Route Start Last Admin Trade Name Freq PRN Reason Stop Dose Admin Ringer's Solution 1,000 mls @ 30 mls/hr 02/02/23 06:00 02/02/23 11:05 IV 02/02/23 16:00 30 mls/hr INFUSION SHANELLE Administration Cefazolin Sodium/Dextrose 2 gm in 50 mls @ 100 mls/hr 02/02/23 06:00 Ancef Duplex IVPB 02/02/23 23:59 PREOP SHANELLE IV Miscellaneous Supplies 1 each 02/02/23 06:00 Iv Access IV 02/02/23 23:59 DIRECTED SHANELLE Oxycodone HCl 0 mg 02/02/23 07:08 Oxycodone 5 Mg Tab PO 03/04/23 07:07 Q3H PRN PRN Pain Sodium Chloride 0 ml 02/02/23 06:00 Normal Saline Flush 10 Ml Syr IV 02/02/23 23:59 PRN PRN Sodium Chloride 0 ml 02/02/23 06:00 Normal Saline 10 Ml Vial IJ 02/02/23 23:59 DIRECTED PRN Sterile Water 0 ml 02/02/23 06:00 Water,Injection,Sterile 10 Ml Vial IJ 02/02/23 23:59 DIRECTED PRN PFSH Active Problems Active Problems: Problem Status Onset Code SLAP lesion of left shoulder S43.432A Bursitis of left shoulder M75.52 Left rotator cuff tear M75.102 Right rotator cuff tear M75.101 Degenerative spondylolisthesis M43.10 Labral tear of shoulder S43.439A Supraspinatus tendon tear M75.100 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 Central stenosis of spinal canal M48.00 Foraminal stenosis of lumbosacral region M48.07 DDD (degenerative disc disease), lumbar M51.36 Cervical radicular pain M54.12 Left shoulder pain M25.512 Myalgia M79.10 Cervical radiculopathy M54.12 Arm pain, left M79.602 Cervicalgia M54.2 Sciatica M54.30 Cervical paraspinal muscle spasm M62.838 Medical History Medical History Adenomatous colon polyp Hip pain, left Hyperlipidemia Hypertension Obesity Tobacco chew use Tubular adenoma of colon (01/06/17) Medical History Comments:: current chewing tobacco; last night at 1930 Surgical History Surgical History Cholecystectomy Colonoscopy - IV Sedation (01/06/17) History of decompression of ulnar nerve (~2014) [facility] [place] Left 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) Status post arthroscopic knee surgery over 20 years ago unsure which knee Tobacco Smoking/Tobacco Use Status: Current every day Tobacco Type: smokeless tobacco Smokeless tobacco user: chewing tobacco Alcohol Alcohol Intake: never Substance Use Substance use: Daily Details: CBD Gummies Vital Signs and Lab Results Vital Signs Most Recent Vital Signs in EMR: Most Recent Vital Signs Temp Pulse Resp BP Pulse Ox 36.5 C 70 16 138/83 96 02/02/23 10:10 02/02/23 11:13 02/02/23 11:13 02/02/23 11:13 02/02/23 11:13 Lab Results Blood Type / Crossmatch: No Data to Display Complete Blood Count: No Data to Display Complete Metabolic Panel: Sodium 139 mmol/L (136-145) 01/24/23 16:00 Potassium 3.8 mmol/L (3.5-5.1) 01/24/23 16:00 Chloride 103 mmol/L (98-107) 01/24/23 16:00 Carbon Dioxide 24.3 mmol/L (21.0-32.0) 01/24/23 16:00 BUN 27 mg/dL (7-18) H 01/24/23 16:00 Creatinine 1.3 mg/dL (0.70-1.30) 01/24/23 16:00 Est GFR (CKD-EPI 2020) 60.59 (mL/min/1.73m2) 01/24/23 16:00 Calcium 8.9 mg/dL (8.5-10.1) 01/24/23 16:00 Albumin 3.6 g/dL (3.4-5.0) 01/24/23 16:00 Glucose 96 mg/dL (74-106) 01/24/23 16:00 Liver Function Panel: Alanine Aminotransferase (ALT/SGPT) 33 U/L (16-63) 01/24/23 16: 00 Aspartate Amino Transf (AST/SGOT) 24 U/L (15-37) 01/24/23 16:00 Coagulation Panel: No Data to Display Cardiac Panel: No Data to Display Arterial Blood Gas: No Data to Display Venous Blood Gas: No Data to Display Pancreas Panel: No Data to Display Thyroid Panel: No Data to Display Infectious Disease: No Data to Display Blood Cultures: No Data to Display Toxicology Panel: No Data to Display Anesthesia Assessment and Plan Anesthesia History Personal History: No History of Anesthesia Complications Family History: No Family History of Anesthesia Complications Exercise Tolerance Exercise Tolerance: Metabolic Equivalents>4 Pertinent Negatives Pertinent Negatives: No Symptoms of GERD, No Major Cardiovascular Symptoms or Complaints, No Major Pulmonary Symptoms or Complaints and No History of CVA/TIA Cardiac & Pulmonary Exam Cardiac Exam: Normal S1/S2 Heart Sounds Pulmonary Exam: Clear Bilateral Breath Sounds Implantable Cardiac Device Does patient have a Pacemaker or an ICD?: No Airway Exam Known Difficult Airway: No Mallampati Class: 2 Mouth Opening: Normal (> 3cm) Thyromental Distance: Greater than 3 cm Neck Range of Motion: Full ROM Neck Circumference: Normal Teeth Condition: Normal Dentition ASA Classification ASA Score: ASA 2 Emergency Case?: No NPO Status NPO Status: NPO Clears >2 hours, Solids >8 hours Anesthesia Plan Resuscitation Status: Full Code Anesthesia Technique: General Anesthesia Airway Planned: Endotracheal Tube Monitors Used: Standard Monitors Preoperative Comments:: Known cervical radiculopathy on operative side. Per patient starts in neck, indicated scalene region, and extends down to left pinky. Discussed at length with surgeon and patient and will not be blocking the patient today.
[2023-02-02] MEDS: EPINEPHrine 30 MG/30 ML VIAL (12:00)
[2023-02-02] MEDS: ceFAZolin 2 GM/50 ML BAG IVPB (13:17)
--- NOTE | 2023-02-02 15:46 | W.ANESPOSTOP ---
Postoperative Evaluation Date, Time and Location Date Performed: 02/02/23 Time Performed: 15:46 Patient Location: PACU Vital Signs Most Recent Imported Vital Signs: Most Recent Vital Signs Temp Pulse Resp BP Pulse Ox 36.5 C 62 16 134/84 96 02/02/23 15:42 02/02/23 15:42 02/02/23 15:42 02/02/23 15:42 02/02/23 15:42 Pain Score Most Recent Pain Score: Most Recent Pain Score Pain Level 4 02/02/23 15:42 Assessment Mental Status: Awake (Alert & Oriented to Patient Baseline) Airway and Respiratory Function: Patent airway with normal (patient baseline) respiratory exam Cardiovascular Function: Hemodynamically Stable Hydration Status: Adequately Hydrated Nausea & Vomiting: No Nausea or Vomiting Pain: Pain is tolerable per patient Peripheral Nerve Block: Patient did not receive a nerve block
[2023-02-02] MEDS: oxyCODONE 5 MG TAB PO (16:03)
== END 2023-02-02 16:45 | disposition home or self-care (01) ==
PROVIDERS: PCP Nurse Practitioner Family; Visit Provider Student in an Organized Health Care Education/Training Program
PROC: (CPT 29827; principal; 2023-02-02 12:00)
DX: S43.422A Sprain of left rotator cuff capsule, initial encounter (principal); S43.432A Superior glenoid labrum lesion of left shoulder, initial encounter; M75.52 Bursitis of left shoulder; M75.42 Impingement syndrome of left shoulder; X58.XXXA Exposure to other specified factors, initial encounter
CPT/HCPCS: 29827; 29823; 29826; 29828; J0690; J1100; J1885; J2001; J2250; J2371; J2405; J2704; J3475

== ENCOUNTER 2023-10-13 10:10 | Outpatient (CLI) | payer BC, SELFPAY ==
--- NOTE | 2023-10-13 09:10 | DI.RAD_ITS ---
Exam(s) XR HIP LT AP LAT ONLY EXAM: XR HIP LT AP LAT ONLY CLINICAL HISTORY: annual f/u L COLE. TECHNIQUE: 2D digital imaging was performed. Two views. COMPARISON: CR XR HIP LT COMPLETE AP PELVIS from 10/27/2022 FINDINGS: BONES: No acute fracture is present. No bony destructive lesion is seen. JOINTS: No dislocation present. Stable appearance of left hip prosthesis. SOFT TISSUE: Normal. IMPRESSION: Stable appearance of left hip prosthesis. DATA REPOSITORY: RADIATION DOSE DELIVERED:
== END 2023-10-13 10:11 | disposition home or self-care (01) ==
LOC: DIORS 10:10
PROVIDERS: PCP Nurse Practitioner Family; Referring Provider Nurse Practitioner Family; Visit Provider Physician Assistant
DX: Z96.642 Presence of left artificial hip joint (principal); Z47.1 Aftercare following joint replacement surgery
CPT/HCPCS: 73502

== ENCOUNTER 2024-01-29 15:26 | Outpatient (REF) | payer BC, SELFPAY ==
[2024-01-29 19:47] LABS: ALT 36 U/L (16-63); AST 28 U/L (15-37); Albumin 3.9 g/dL (3.4-5.0); Alkaline Phosphatase 91 U/L (46-116); Anion Gap 9.8 mmol/L (3-11); BUN 30 mg/dL (7-18); Bilirubin, Total 0.88 mg/dL (0.2-1.0); CO2 25.2 mmol/L (21.0-32.0); CREATININE 1.3 mg/dL (0.70-1.30); Calcium 9.4 mg/dL (8.5-10.1); Calculated LDL 113 mg/dL (<100); Chloride 106 mmol/L (98-107); Cholesterol 183 mg/dL (<200); Estimated GFR 60.21 (mL/min/1.73m2); Glucose 89 mg/dL (74-106); HDL Cholesterol 58 mg/dL (40-60); Potassium 4.1 mmol/L (3.5-5.1); Sodium 141 mmol/L (136-145); Total Protein 7.8 g/dL (6.4-8.2); Triglyceride 64 mg/dL (<150)
== END 2024-01-29 15:27 | disposition home or self-care (01) ==
LOC: NCHCN 15:26
PROVIDERS: PCP Nurse Practitioner Family; Visit Provider Nurse Practitioner Family
DX: Z00.00 Encounter for general adult medical examination without abnormal findings (principal); Z13.220 Encounter for screening for lipoid disorders; Z13.228 Encounter for screening for other metabolic disorders
CPT/HCPCS: 80053; 80061

== ENCOUNTER 2025-01-29 22:09 | Outpatient (REF) | payer OTHER, SELFPAY ==
[2025-01-29 16:10] LABS: ALT 38 U/L (16-63); AST 30 U/L (15-37); Albumin 3.9 g/dL (3.4-5.0); Alkaline Phosphatase 89 U/L (46-116); Anion Gap 7.9 mmol/L (3-11); BUN 27 mg/dL (7-18); Bilirubin, Total 1.1 mg/dL (0.2-1.0); CO2 25.1 mmol/L (21.0-32.0); Calcium 9.1 mg/dL (8.5-10.1); Calculated LDL 119 mg/dL (<100); Chloride 106 mmol/L (98-107); Cholesterol 184 mg/dL (<200); Estimated GFR 93.03 (mL/min/1.73m2); Glucose 96 mg/dL (74-106); HDL Cholesterol 57 mg/dL (>or=40); Potassium 4.0 mmol/L (3.5-5.1); Sodium 139 mmol/L (136-145); Total Protein 7.4 g/dL (6.4-8.2); Triglyceride 43 mg/dL (<150)
== END 2025-01-29 22:10 | disposition home or self-care (01) ==
LOC: NCHCN 22:09
PROVIDERS: PCP Nurse Practitioner Family; Visit Provider Nurse Practitioner Family
DX: Z00.00 Encounter for general adult medical examination without abnormal findings (principal); E78.5 Hyperlipidemia, unspecified
CPT/HCPCS: 80053; 80061

== ENCOUNTER 2025-05-19 11:36 | Day surgery (SDC) | payer OTHER, SELFPAY ==
[2025-05-19 11:45] VITALS: BP 150/93; PULSE 72; RESP 16; TEMP 35.8; O2SAT 96
[2025-05-19] MEDS: Lactated Ringers 1,000 ML 80 ML IV (12:10)
--- NOTE | 2025-05-19 13:53 | W.ANESPRE ---
General Info Date of Service Date Performed: 05/19/25 Height: 5 ft 10.5 in Weight: 106.7 g Body Mass Index (BMI): 0.0 Surgical Procedure: Operation Date: 05/19/25 12:20 Proposed Procedure Side Surgeon ariel Jacobs MD Meds Allergies and Home Medications Allergies Allergy/AdvReac Type Severity Reaction Status Date / Time No Known Allergies Allergy Verified 05/19/25 11:53 Home Medication ?Medication ?Instructions ?Recorded atorvastatin 40 mg tablet 40 mg PO HS 10/07/21 losartan 50 mg tablet 50 mg PO HS 10/07/21 CBD See Rx Instructions PO HS Pain and 01/19/22 sleep coenzyme Q10 200 mg capsule (Co 200 mg PO DAILY 10/12/22 Q-10) ibuprofen 200 mg tablet 200 mg PO Q6H PRN 08/16/23 bisacodyl 5 mg tablet,delayed 5 mg PO ONCE #4 tabs 04/30/25 release (Dulcolax (bisacodyl)) polyethylene glycol 3350 17 17 g PO ONCE #238 grams 04/30/25 gram/dose oral powder rosuvastatin 20 mg tablet 20 mg PO HS 05/19/25 Current Visit Medications: Current Medications Generic Name Dose Route Start Last Admin Trade Name Freq PRN Reason Stop Dose Admin Ringer's Solution 1,000 mls @ 80 mls/hr 05/19/25 06:00 05/19/25 12:10 IV 06/15/25 23:59 80 mls/hr INFUSION SHANELLE Administration IV Miscellaneous Supplies 1 each 05/19/25 06:00 Iv Access IV 06/15/25 23:59 DIRECTED SHANELLE Sodium Biphosphate/Sodium Phosphate 133 ml 05/19/25 06:00 Na Phosphate Enema-Adult 133 Ml Btl DE 06/15/25 23:59 DIRECTED PRN Sodium Chloride 0 ml 05/19/25 06:00 Normal Saline Flush 10 Ml Syr IV 06/15/25 23:59 PRN PRN Sodium Chloride 0 ml 05/19/25 06:00 Normal Saline 10 Ml Vial IJ 06/15/25 23:59 DIRECTED PRN Sterile Water 0 ml 05/19/25 06:00 Water,Injection,Sterile 10 Ml Vial IJ 06/15/25 23:59 DIRECTED PRN PFSH Active Problems Active Problems: Problem Status Onset Code SLAP lesion of left shoulder Acute S43.432A Bursitis of left shoulder Acute M75.52 Left rotator cuff tear Acute M75.102 Right rotator cuff tear Acute M75.101 Degenerative spondylolisthesis Acute M43.10 Labral tear of shoulder Acute S43.439A Supraspinatus tendon tear Acute M75.100 DJD of left AC (acromioclavicular) joint Acute M19.012 Central stenosis of spinal canal Acute M48.00 Foraminal stenosis of lumbosacral region Acute M48.07 DDD (degenerative disc disease), lumbar Chronic M51.36 Cervical radicular pain Acute M54.12 Left shoulder pain Acute M25.512 Myalgia Acute M79.10 Cervical radiculopathy Acute M54.12 Arm pain, left Acute M79.602 Cervicalgia Acute M54.2 Sciatica Acute M54.30 Cervical paraspinal muscle spasm Acute M62.838 Medical History Medical History Hip pain, left Tubular adenoma of colon (01/06/17) Hyperlipidemia Tobacco chew use Adenomatous colon polyp Obesity Hypertension Medical History Comments:: current chewing tobacco; last night at 1930 Surgical History Surgical History 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) Status post arthroscopic knee surgery over 20 years ago unsure which knee History of decompression of ulnar nerve (~2014) [facility] [place] Left Colonoscopy - IV Sedation (01/06/17) Cholecystectomy Tobacco Smoking/Tobacco Use Status: Current every day Tobacco Type: smokeless tobacco Smokeless tobacco user: chewing tobacco Alcohol Alcohol Intake: never Substance Use Substance use: Daily Details: CBD Gummies Vital Signs and Lab Results Vital Signs Most Recent Vital Signs in EMR: Most Recent Vital Signs Temp Pulse Resp BP Pulse Ox 35.8 C L 72 16 150/93 H 96 05/19/25 11:45 05/19/25 11:45 05/19/25 11:45 05/19/25 11:45 05/19/25 11:45 Anesthesia Assessment and Plan Anesthesia History Personal History: No History of Anesthesia Complications Family History: No Family History of Anesthesia Complications Exercise Tolerance Exercise Tolerance: Metabolic Equivalents>4 Cardiac & Pulmonary Exam Cardiac Exam: Normal S1/S2 Heart Sounds Pulmonary Exam: Clear Bilateral Breath Sounds Implantable Cardiac Device Does patient have a Pacemaker or an ICD?: No Airway Exam Known Difficult Airway: No Mallampati Class: 2 Mouth Opening: Normal (> 3cm) Thyromental Distance: Greater than 3 cm Neck Range of Motion: Full ROM Neck Circumference: Normal Teeth Condition: Normal Dentition ASA Classification ASA Score: ASA 2 Emergency Case?: No NPO Status NPO Status: NPO Clears >2 hours, Solids >8 hours Anesthesia Plan Resuscitation Status: Full Code Anesthesia Technique: General Anesthesia Airway Planned: Natural Airway Monitors Used: Standard Monitors Preoperative Comments:: 69 yo for colo. Sig PMHx: HTN (losartan), DJD, cervical radiculopathy, spinal stenosis. Current daily chewing tobacco (none today). Previous Anes: - shoulder, glide 3 grade 2a, no issues. - COLE, spinal, prop sedation, no issues.
--- NOTE | 2025-05-19 14:15 | W.PM.HP.N ---
Date of service: 05/19/25 Time of Service: 14:15 Assessment and Plan Assessment and plan (1) Encounter for colorectal cancer screening: Status: Acute Assessment and plan: Average risk for colorectal cancer, with no significant symptoms or risk factors identified. Potential complications associated with the procedure were thoroughly discussed, including bleeding, pain, perforation, missed lesions, sore throat, aspiration, and adverse reactions to medications. Proceed as planned. History of Present Illness History of Present Illness Chief Complaint: here for screening colonoscopy Narrative: 69yo M presents for a routine screening colonoscopy. He has previously undergone a colonoscopy during which polyps were removed. This was his first experience with the procedure. He reports no history of colon cancer, Crohn's disease, or ulcerative colitis. There is no known family history of colon or rectal cancer. He also reports no recent changes in bowel habits, presence of blood in stool, black-colored stool, regular abdominal pain, or difficulty eating. His appetite remains unaffected. Exam Const Other: awake, NAD eomi, MMM midline trachea, neck is symmetric PULM: normal resp effort, equal chest rise with respiration, no wheezing audible CARDIAC: normal PMI, no jvd, regular rate, normal perfusion abdomen is nondistended. extremities are without deformity, normal movement of all four extremities speech is clear and coherent mood and affect are congruent, no focal neurological deficits skin without rash PFSH All Active Problems (Updated 05/19/25 @ 14:16 by Bridgette Jacobs MD) Encounter for colorectal cancer screening (Acute) SLAP lesion of left shoulder (Acute) Bursitis of left shoulder (Acute) Left rotator cuff tear (Acute) Right rotator cuff tear (Acute) Degenerative spondylolisthesis (Acute) L5 S1 1 cm anteriorly Labral tear of shoulder (Acute) Tear vs Degeneration per MRI 05/26/2022 Supraspinatus tendon tear (Acute) DJD of left AC (acromioclavicular) joint (Acute) Central stenosis of spinal canal (Acute) Foraminal stenosis of lumbosacral region (Acute) DDD (degenerative disc disease), lumbar (Chronic) Cervical radicular pain (Acute) Left shoulder pain (Acute) Myalgia (Acute) Cervical radiculopathy (Acute) Arm pain, left (Acute) Cervicalgia (Acute) Sciatica (Acute) Left Cervical paraspinal muscle spasm (Acute) Left Medical History Hip pain, left Tubular adenoma of colon (01/06/17) Hyperlipidemia Tobacco chew use Adenomatous colon polyp Obesity Hypertension Surgical History 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) Status post arthroscopic knee surgery over 20 years ago unsure which knee History of decompression of ulnar nerve (~2014) [facility] [place] Left Colonoscopy - IV Sedation (01/06/17) Cholecystectomy Social History Smoking/Tobacco Use Status: Current every day Tobacco Type: smokeless tobacco Smokeless tobacco user: chewing tobacco Smoking risk assessment performed?: Yes Alcohol Intake: never Drug use: Daily Details: CBD Gummies Household members: spouse Housing: apartment Number of Children: 3 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 Current gender identity: male Seatbelt use: always Do you feel safe at home: Yes Additional Social history: unable to assess privately Meds Allergies and Home Medications Allergies Allergy/AdvReac Type Severity Reaction Status Date / Time No Known Allergies Allergy Verified 05/19/25 11:53 Home Medications ?Medication ?Instructions ?Recorded ?Confirmed ?Type atorvastatin 40 mg tablet 40 mg PO HS 10/07/21 05/19/25 History losartan 50 mg tablet 50 mg PO HS 10/07/21 05/19/25 History CBD See Rx Instructions PO HS Pain and 01/19/22 05/19/25 History sleep coenzyme Q10 200 mg capsule (Co 200 mg PO DAILY 10/12/22 05/19/25 History Q-10) ibuprofen 200 mg tablet 200 mg PO Q6H PRN 08/16/23 05/19/25 History bisacodyl 5 mg tablet,delayed 5 mg PO ONCE #4 tabs 04/30/25 05/19/25 Rx release (Dulcolax (bisacodyl)) polyethylene glycol 3350 17 17 g PO ONCE #238 grams 04/30/25 05/19/25 Rx gram/dose oral powder rosuvastatin 20 mg tablet 20 mg PO HS 05/19/25 05/19/25 History Results Last Vital Signs Temp 96.4 F L 05/19/25 11:45 Pulse 72 05/19/25 11:45 Resp 16 05/19/25 11:45 BP 150/93 H 05/19/25 11:45 Pulse Ox 96 05/19/25 11:45 Time Spent Time spent with Patient: <40 minutes Time was spent: preparing to see the patient(eg.review tests), counseling the patient and care coordination
--- NOTE | 2025-05-19 15:11 | W.PM.DSUDISC ---
Date of service: 05/19/25 Discharge Plan Disposition Patient Disposition: Home Discharge Details Attending Provider: Bridgette Jacobs Primary Care Provider: CHRYSTAL LIZ Home Meds and New Rx's Prescriptions: Continued ibuprofen 200 mg tablet 200 mg PO Q6H PRN CBD See Rx Instructions PO HS Rx Instructions: 25-50 mg orally bedtime; coenzyme Q10 [Co Q-10] 200 mg Capsule 200 mg PO DAILY rosuvastatin 20 mg tablet 20 mg PO HS Patient Comments: TAKE 1 TABLET BY MOUTH ONCE DAILY DIRECTED losartan 50 mg Tablet 50 mg PO HS atorvastatin 40 mg Tablet 40 mg PO HS Discontinued bisacodyl [Dulcolax (bisacodyl)] 5 mg tablet,delayed release (DR/EC) 5 mg PO ONCE Qty: 4 0RF Rx Instructions: Take per colonoscopy instructions provided by ordering providers office polyethylene glycol 3350 17 gram/dose powder 17 g PO ONCE Qty: 238 0RF Rx Instructions: Take per colonoscopy instructions provided by ordering providers office Discharge Instructions Additional Instructions: Two tiny polyps seen and removed today. I predict your next colonoscopy will be due in 5 years but I will let you know in writing when I find out what kind of polyps these are. Sorry again that you had to wait so long today. You did well. Stand Alone Forms: Anesthesia Discharge Inst., Colonoscopy Post Instructions, Kelvin Wan (DSU) Activity:: Activity as Tolerated Shower/Bathe:: 24 hours Diet:: As Tolerated Discharge Orders Discharge Orders: Discharge Order (Routine); Ordered 05/19/25 Ordered By: Bridgette Jacobs DS: Diagnosis Discharge Diagnosis (1) Encounter for colorectal cancer screening: Status: Acute (2) Polyp of ascending colon: Status: Acute (3) Polyp, sigmoid colon: Status: Acute
--- NOTE | 2025-05-19 15:25 | BOWEL_PTH ---
PATIENT: Vishnu Leary LOC: [facility] U#:[id number] AGE/SX: 69/M ROOM: RE05/19/[address]: Bridgette Jacobs MD : [id number] BED: DIS: 05/19/2025 SPEC #: [id number] RECD: 05/19/25 18:24 STATUS: AMANDA REQ #: [id number] CHERISE: 05/19/25 15:[address]: Bridgette Jacobs DEPT: Surgical Specimen RECD BY: Mindi Gan ENTERED: 05/19/25 18:26 SP TYPE: Bowel OTHR DR: CHRYSTAL LIZ, [employer] Tissues: 1 - BIOPSY BOWEL 2 - BIOPSY BOWEL Procedures: GROSS AND MICRO LEVEL 4 Comments: [id number]
[2025-05-19 15:36] VITALS: BP 123/77; PULSE 67; RESP 16; TEMP 36.3; O2SAT 94
--- NOTE | 2025-05-19 15:57 | W.COLOREPORT ---
Date of service: 05/19/25 Time of Service: 15:58 Colonoscopy Report Pre-op diagnosis general: Screening for colorectal cancer Post-op diagnosis procedure note: other (1. ascending colon polyp. 2. sigmoid polyp. ) Procedure: Colonoscopy with cold forceps polypectomy Surgeon: Bridgette Jacobs Anesthesia Type: General:No Airway Estimated blood loss (mL): 2 Pathology: other (1. ascending colon polyp. 2. sigmoid polyp. ) Complications: None Indications: screening for colorectal cancer Prep: Miralax/Dulcolax (fair to good) Procedure Description: Informed consent was obtained and the patient was taken to the procedure area. The patient was placed in left lateral decubitus position on the procedure table. Timeout was performed. Anesthesia was induced. A lubricated colonoscope was inserted through the anus and passed to the cecum. The cecum was identified by the ileocecal valve and the appendiceal orifice. The scope was then slowly withdrawn and the colonic and rectal mucosa examined. ascending colon polyp 4mm sessile excised with cold forceps. simoid polyp at 30cm sessile 3mm excised with cold forceps. The scope was retroflexed in the anorectal junction examined. Uncomplicated internal hemorrhoids present. Assessment and plan: Ascending colon polyp sigmoid polyp Two small polyps seen and excised. Timing of next colonoscopy will depend on path of polyps.
[2025-05-19 16:08] VITALS: BP 123/78; PULSE 69; RESP 16; TEMP 36.5; O2SAT 96
--- NOTE | 2025-05-19 20:17 | W.ANESPOSTOP ---
Postoperative Evaluation Date, Time and Location Date Performed: 05/19/25 Time Performed: 15:37 Patient Location: Day Surgery Unit Vital Signs Most Recent Imported Vital Signs: Most Recent Vital Signs Temp Pulse Resp BP Pulse Ox 36.5 C 69 16 123/78 96 05/19/25 16:08 05/19/25 16:08 05/19/25 16:08 05/19/25 16:08 05/19/25 16:08 Pain Score Most Recent Pain Score: Most Recent Pain Score Pain Level 0 05/19/25 16:08 Assessment Mental Status: Awake (Alert & Oriented to Patient Baseline) Airway and Respiratory Function: Patent airway with normal (patient baseline) respiratory exam Cardiovascular Function: Hemodynamically Stable Hydration Status: Adequately Hydrated Nausea & Vomiting: No Nausea or Vomiting Pain: Pt. Denies Any Pain Peripheral Nerve Block: Patient did not receive a nerve block
== END 2025-05-19 16:11 | disposition home or self-care (01) ==
PROVIDERS: PCP Nurse Practitioner Family; Visit Provider Surgery
PROC: 0DJD8ZZ Inspection of Lower Intestinal Tract, Via Natural or Artificial Opening Endoscopic (ICD-10-PCS; CPT 45378; principal; 2025-05-19 12:15)
DX: Z12.11 Encounter for screening for malignant neoplasm of colon (principal); Z12.12 Encounter for screening for malignant neoplasm of rectum; D12.3 Benign neoplasm of transverse colon; I10 Essential (primary) hypertension
CPT/HCPCS: 45380; 88305; J2704